=== PATIENT | female | born 1970 | race Caucasian/White ===

== ENCOUNTER 2024-03-19 13:07 | Emergency (ER) | payer MEDICAID, SELFPAY ==
[2024-03-19 13:15] VITALS: BP 131/71; PULSE 112; RESP 22; TEMP 36.7; O2SAT 100
--- NOTE | 2024-03-19 13:17 | XR_ITS ---
Examination: PA chest single view TECHNIQUE: Upright PA chest single view Exam date and time: March 19, 2024 1327 hours INDICATIONS: Difficulty breathing with coughing today. FINDINGS: Moderate hyperexpansion Normal heart size No pneumonia or pulmonary edema Mild accentuation bronchovascular markings IMPRESSION: Moderate hyperexpansion Mild bronchitis pattern
[2024-03-19] MEDS: ALBUTEROL/IPRATROPIUM (Duoneb) RT SOL 3 ML NEBU INH (13:34)
[2024-03-19 13:35] VITALS: PULSE 115; RESP 22; O2SAT 99
[2024-03-19] MEDS: ACETAMINOPHEN w/COD 300-30 TABLET 2 TAB PO (13:39)
[2024-03-19] MEDS: predniSONE 20 MG TABLET 40 MG PO (13:39)
--- NOTE | 2024-03-19 13:45 | EDNOTE_ITS ---
ED SOB =RME/HPI General Chief Complaint: Shortness of Breath/Dyspnea Stated Complaint: PROBLEMS BREATHING W/ COUGH Time Seen by Provider: 03/19/24 13:09 Arrival date/time: 03/19/24 13:07 RME / HPI RME / HPI Narrative: This section includes all my notes and documentations, including HPI, PE, and ED course.? Kenrick Boss MD HPI: 53-year-old female here with about a week history of worsening cough, productive cough, purulent sputum, and dyspnea. No fever. No chest pain. No other complaints. ROS: All negative except as documented in HPI. Physical Exam: General:? Alert and oriented.? Hacking cough noted. Eyes:? Conjunctivae and lids clear.? ENT:? No nasal congestion.??Pharynx normal. TM normal bilaterally. Neck:? Supple.? Heart:? RRR.? Lungs:? No respiratory distress.? Moderately decreased air movement with bilat eral severe rhonchi. Abdomen:? Soft and nontender.?? Legs:? No clubbing, cyanosis, edema.? Skin:? Warm and dry.?? Neuro:? Alert and oriented X 3.?? I reviewed all diagnostic test results. My interpretation of the chest x-ray is increased bronchial markings. COVID/influenza negative. At this point, diagnoses include?bronchitis. Treatment here included?prednisone and DuoNeb and two Tylenol #3. Significant improvement noted. Recommended a trial of outpatient treatment. Based on my best medical judgment, made decision no further evaluation or treatment indicated at this time.? Patient understands and agrees to the discharge instructions customized and printed, see below. Discharge instructions from Dr. Boss: --No physical exertion for 3 days to help rest the lungs. ?-No smoking or exposure to smoking or pets or dust or cold or humidity. --Zithromax to kill the germs causing the bronchitis. --Prednisone to help decrease the swelling in the airways. --Albuterol 2 puffs every 4-6 hours for today and tomorrow to help keep the airways open. Then as needed for cough or shortness of breath. --See a private doctor next week for recheck if not completely better. --Seek immediate medical care with worsening or with any concerns. Kenrick Boss MD Related Data Previous Rx's ?Medication ?Instructions ?Recorded acetaminophen 300 mg-codeine 30 mg 2 tab PO TID PRN pain #20 tabs 03/19/24 tablet albuterol sulfate 90 mcg/actuation 2 inh inhalation QID PRN shortness 03/19/24 aerosol inhaler of breath or wheezing #8.5 grams azithromycin 500 mg tablet 500 mg PO QDAY 3 days #3 tabs 03/19/24 (Zithromax TRI-YVETTE) prednisone 20 mg tablet 40 mg PO DAILY 3 days #6 tabs 03/19/24 Allergies Allergy/AdvReac Type Severity Reaction Status Date / Time morphine Allergy Intermediate ITCHING Verified 03/19/24 13:08 Contrast Media Allergy Intermediate ITCHING Uncoded 03/19/24 13:08 Review of Systems Review of Systems Systems Reviewed: All systems reviewed, normal except as documented Past Medical History Past Medical History CARDIAC: Negative Congestive Heart Failure RESPIRATORY: Negative Chronic Obstructive Pulmonary Disease (COPD) GENITOURINARY: Negative Renal Disease ENDOCRINE: Negative Diabetes Mellitus Type 1 or Diabetes Mellitus Type 2 Social History SMOKING STATUS: Never smoker ED Exam Narrative Physical exam: As noted in HPI Course Course Course Narrative: chest xray ordered to help determine etiology of shortness of breath. Quality Measures none Orders Category Date Time Status Bedside COVID-19 Antigen Test NOW Care 03/19/24 13:17 Completed Bedside Influenza A&B Antigen Test NOW Care 03/19/24 13:17 Completed XR chest 1V portable Stat Exams 03/19/24 13:17 Completed ACETAMINOPHEN w/COD 300-30 [Tylenol w/Cod #3] Med 03/19/24 13:17 Discontinued 2 tab PO X1 ONE Albuterol/Ipratr Rt Kaitlynn [Duoneb Rt Kaitlynn] Med 03/19/24 13:17 Discontinued 3 ml INH X1 ONE Azithromycin Po [Zithromax PO] Med 03/19/24 15:04 Discontinued 500 mg PO X1 ONE predniSONE Med 03/19/24 13:17 Discontinued 40 mg PO X1 ONE Vital Signs Vital signs: Vital Signs Temperature 98.1 F 03/19/24 13:15 Pulse Rate 112 H 03/19/24 13:15 Respiratory Rate 22 H 03/19/24 13:15 Blood Pressure 131/71 H 03/19/24 13:15 Pulse Oximetry (%) 100 03/19/24 13:15 Oxygen Delivery Method Room Air 03/19/24 13:15 Pulse ox is 100% on room air which is adequate. Shortness of Breath / Dyspnea Patient data External records reviewed:: [facility] previous records (I reviewed ED visit on 05/17/2023) Clinical information provided by:: patient Social determinants that could affect healthcare access:: none Patient has the following chronic illnesses:: None How is presenting disease/condition affected by chronic disease/condition?: no chronic disease Evaluation data The following diagnostics were reviewed and interpreted by me:: lab results and radiology exam(s) Lab and/or radiology exams considered but not ordered:: None Interpretation Summary: Bronchitis Medications / Prescriptions Medications or Prescriptions considered but not ordered:: None Medication administrations:: Medication Administration History Discontinued Medications Acetaminophen/Codeine Phosphate (Acetaminophen W/Cod 300-30 Tablet) 2 tab PO X1 ONE Stop: 03/19/24 13:18 Last Admin: 03/19/24 13:39 Dose: 2 tab Documented By: ALEJANDRINA Albuterol/Ipratropium (Albuterol/Ipratropium (Duoneb) Rt Kaitlynn 3 Ml Nebu) 3 ml INH X1 ONE Stop: 03/19/24 13:18 Last Admin: 03/19/24 13:34 Dose: 3 ml Documented By: VIRI Azithromycin (Azithromycin 250 Mg Tablet) 500 mg PO X1 ONE Stop: 03/19/24 15:05 Last Admin: 03/19/24 15:11 Dose: 500 mg Documented By: OA Prednisone (Prednisone 20 Mg Tablet) 40 mg PO X1 ONE Stop: 03/19/24 13:18 Last Admin: 03/19/24 13:39 Dose: 40 mg Documented By: OA Albuterol, prednisone, Tylenol with codeine, Azithromycin Consultations Consultation(s) initiated? (list below): No Diagnosis Shortness of Breath Differential Diagnosis: acute exacerbation of chronic obstructive airways disease, congestive heart failure, community acquired pneumonia and asthma with exacerbation Most likely diagnosis given after review of the tests above:: Bronchitis Admission Indicated Admission indicated?: not indicated Explain why admission is indicated or not indicated:: Does not meet admission criteria Admission Request Was there a request for admission?: No Admission Attestation Admission request attestation: Admission criteria not met Disposition Plan Disposition Plan: Discharge Discharge Attestation Discharge Attestation: The patient and all family members were given an opportunity to ask questions and understood the discharge instructions. Discharge instructions specifically effects, indications for sooner follow up or return to the emergency department, and the expected course of current diagnosis. Patient condition: Stable Discharge Plan Plan Patient Disposition: HOME (Self Care) Prescriptions/Referrals Prescriptions/Med Rec: New prednisone 20 mg tablet 40 mg PO DAILY 3 Days Qty: 6 0RF Taper: Prednisone Taper 20 mg DAILY for 2 Days and 0 Hour 10 mg DAILY for 2 Days and 0 Hour 5 mg DAILY for 7 Days and 0 Hour acetaminophen-codeine 300-30 mg tablet 2 tab PO TID MDD 6 PRN (Reason: pain) Qty: 20 0RF albuterol sulfate 90 mcg/actuation HFA aerosol inhaler 2 inh inhalation QID PRN (Reason: shortness of breath or wheezing) Qty: 8.5 0RF azithromycin [Zithromax TRI-YVETTE] 500 mg tablet 500 mg PO QDAY 3 Days Qty: 3 0RF Referrals: No Primary/Family,Physician [Primary Care Provider] - In 1 week Problem List Clinical Impression: Bronchitis Patient/Caregiver Discharge Instructions Education Materials: ED Bronchitis with Wheezing (Adult) Additional Instructions: Discharge instructions from Dr. Boss: --No physical exertion for 3 days to help rest the lungs. ?-No smoking or exposure to smoking or pets or dust or cold or humidity. --Zithromax to kill the germs causing the bronchitis. --Prednisone to help decrease the swelling in the airways. --Albuterol 2 puffs every 4-6 hours for today and tomorrow to help keep the airways open. Then as needed for cough or shortness of breath. --See a private doctor next week for recheck if not completely better. --Seek immediate medical care with worsening or with any concerns. Print Language: Micronesian Stand Alone Forms: Josefina Award Info., Patient Portal Info Letter
[2024-03-19] MEDS: AZITHROMYCIN 250 MG TABLET 500 MG PO (15:11)
[2024-03-19 16:10] VITALS: BP 124/84; PULSE 78; RESP 16; O2SAT 99
== END 2024-03-19 16:10 | disposition home or self-care (01) ==
PROVIDERS: Emergency Provider Emergency Medicine
DX: J40 Bronchitis, not specified as acute or chronic (principal)
CPT/HCPCS: 71045; 87400; 87811; 94640; 99283; A9270; J7512

== ENCOUNTER 2024-04-25 14:59 | Emergency (ER) | payer MEDICAID, SELFPAY ==
--- NOTE | 2024-04-25 15:02 | EKG_ITS ---
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
--- NOTE | 2024-04-25 15:02 | XR_ITS ---
Examination: AP AP chest single view Technique one AP upright portable chest single view Exam date and time: April 25, 2024 1523 hrs. Indications: Chest pain vomiting today. Findings: Normal heart size Moderate hyperexpansion No pneumonia or pulmonary edema Impression: COPD No pneumonia or pulmonary edema
--- NOTE | 2024-04-25 15:03 | PD.EDADULT ---
ED General RME/HPI General Chief complaint: Chest Pain Stated complaint: CHEST PAIN Time Seen by Provider: 04/25/24 15:02 Arrival date/time: 04/25/24 14:59 RME / HPI RME / HPI narrative: 53-year-old female patient with no significant medical history, came in for evaluation regarding left-sided chest pain. Patient was drinking alcohol when it happened, described as dull ache, severity mild. Patient was also noted to be throwing up and nauseous. Denies any cough denies any fever denies any other complaints no medication was taken prior to arrival. Related Data Previous Rx's ?Medication ?Instructions ?Recorded acetaminophen 300 mg-codeine 30 mg 2 tab PO TID PRN pain #20 tabs 03/19/24 tablet albuterol sulfate 90 mcg/actuation 2 inh inhalation QID PRN shortness 03/19/24 aerosol inhaler of breath or wheezing #8.5 grams Allergies Allergy/AdvReac Type Severity Reaction Status Date / Time morphine Allergy Intermediate ITCHING Verified 04/25/24 15:22 Contrast Media Allergy Intermediate ITCHING Uncoded 04/25/24 15:22 Review of Systems Review of Systems Narrative Review of Systems: Review of system reviewed and within normal limits except mentioned in HPI ED Exam Narrative Physical exam: VITAL SIGNS: Reviewed. GENERAL APPEARANCE: Alert and interactive, follows commands, no acute distress, HEAD AND FACE: Non-traumatic. ENT: PERRL, pink conjunctivitis, eyelid no trauma, Mucous membrane moist. NECK: Supple, nontender, no nuchal rigidity. CHEST: Left-sided chest tenderness, no crepitus, no paradoxical movement, no retractions. LUNGS: Clear, well ventilated, symmetric, no rales, no wheezing, no ronchi, no stridor, good breath sounds bilaterally. HEART: Regular rate, regular rhythm, no murmur, no gallops. ABDOMEN: Soft, positive bowel sounds, nondistended, no guarding, nontender, no rebound, no masses, RECTAL: Deferred. GENITAL: Deferred. NEUROLOGICAL: Gross motor function intact sensory function intact, Appropriate for age. MUSCULOSKELETAL: low back nontender, full range of motion. EXTREMITIES: Nontender, full range of motion. SKIN: Color pink, dry, no rash, no lacerations, no abrasions, no contusions. LYMPHATICS: Deferred. Course Quality Measures none Orders Category Date Time Status EKG (ED ONLY) *Do not use* NOW Care 04/25/24 15:02 Completed EKG (ED Only) Stat Exams 04/25/24 15:02 Draft XR chest 1V Stat Exams 04/25/24 15:02 Completed B-Type Natriuretic Peptide Stat Lab 04/25/24 15:38 Completed CBC Stat Lab 04/25/24 15:38 Completed Comprehensive Metabolic Panel Stat Lab 04/25/24 15:38 Completed Partial Thromboplastin Time Stat Lab 04/25/24 15:38 Completed Prothrombin Time with INR Stat Lab 04/25/24 15:38 Completed Troponin I Stat Lab 04/25/24 15:38 Completed Acetaminophen Tab [Tylenol ES Tab] Med 04/25/24 15:02 Discontinued 1,000 mg PO X1 ONE Ondansetron Odt [Zofran Odt] Med 04/25/24 15:02 Discontinued 4 mg PO X1 ONE mg Hyd/Al Hyd/Shlomo Susp [Maalox Susp] Med 04/25/24 15:02 Discontinued 30 ml PO X1 ONE Vital Signs Vital signs: Vital Signs Temperature 97.5 F 04/25/24 15:05 Pulse Rate 85 04/25/24 15:05 Respiratory Rate 17 04/25/24 15:05 Blood Pressure 144/97 H 04/25/24 15:05 Pulse Oximetry (%) 96 04/25/24 15:05 Oxygen Delivery Method Room Air 04/25/24 15:05 [facility] Patient data External records reviewed:: None Clinical information provided by:: patient Social determinants that could affect healthcare access:: none Patient has the following chronic illnesses:: None How is presenting disease/condition affected by chronic disease/condition?: no chronic disease Evaluation data The following diagnostics were reviewed and interpreted by me:: radiology exam(s) Lab and/or radiology exams considered but not ordered:: None Interpretation Summary: Laboratory couple came back unremarkable troponin is normal. Chest x-ray came back unremarkable. EKG showed normal sinus rhythm, ventricular rate of 89 bpm, no ST segment ovation depression noted. Medications Medications considered but not ordered:: None Medication administrations:: Medication Administration History Discontinued Medications Acetaminophen (Acetaminophen 500 Mg Tablet) 1,000 mg PO X1 ONE Stop: 04/25/24 15:03 Last Admin: 04/25/24 15:33 Dose: 1,000 mg Documented By: KF Al Hydrox/Mg Hydrox/Simethicone (Mg Hyd/Al Hyd/Shlomo (Maalox Reg) Susp 30 Ml Udc) 30 ml PO X1 ONE Stop: 04/25/24 15:03 Last Admin: 04/25/24 15:33 Dose: 30 ml Documented By: KAREN Ondansetron HCl (Ondansetron Odt 4 Mg Tabrap) 4 mg PO X1 ONE; Protocol Stop: 04/25/24 15:03 Last Admin: 04/25/24 15:33 Dose: 4 mg Documented By: KAREN Tylenol Maalox and Zofran Consultations Consultation(s) initiated? (list below): No Diagnosis Differential Diagnosis ED Complaint MDM: Chest pain, alcohol intoxication, vomiting Most likely diagnosis given after review of the tests above:: Chest pain, alcohol intoxication Admission Indicated Admission indicated?: not indicated Explain why admission is indicated or not indicated:: stable Admission Request Was there a request for admission?: No Disposition Plan Disposition Plan: Discharge Discharge Attestation Discharge Attestation: The patient and all family members were given an opportunity to ask questions and understood the discharge instructions. Discharge instructions specifically effects, indications for sooner follow up or return to the emergency department, and the expected course of current diagnosis. Patient condition: Stable Medical Decision Making MDM Narrative MDM Narrative: 53-year-old female patient with no significant medical history, came in for evaluation regarding left-sided chest pain. Patient was drinking alcohol when it happened, described as dull ache, severity mild. Patient was also noted to be throwing up and nauseous. Denies any cough denies any fever denies any other complaints no medication was taken prior to arrival. Patient's workup today all came back normal. Including normal EKG normal chest x-ray troponin also is normal. Results discussed with the patient. Patient appears nontoxic and hemodynamically stable. Patient discharged home and instructed to follow-up with primary care provider in 24 to 48 hours. Instructed to return to the emergency department immediately if worsening of symptoms Differential Diagnosis Differential Diagnosis: Chest pain, alcohol intoxication, vomiting Lab Data 04/25/24 15:38 04/25/24 15:38 Labs: Lab Results 04/25/24 Range/Units 15:38 WBC 7.0 (3.6-11.0) Thou/mm3 RBC 3.93 L (4.00-5.20) Miln/mm3 Hgb 13.5 (12.0-16.0) g/dL Hct 39.2 (36.0-46.0) % MCV 100 (80-100) fL MCH 34.4 (25.0-35.0) pg MCHC 34.4 (31.0-37.0) g/dl RDW Std Deviation 47.9 H (36.4-46.3) fL Plt Count 237 (140-440) Thou/mm3 Neut % (Auto) 61 (37-80) % Lymph % (Auto) 28 (10-50) % [place] % (Auto) 7 (0-12) % Eos % (Auto) 3 (0-10) % Baso % (Auto) 1 (0-2.5) % Neut # (Auto) 4.3 (1.8-7.7) Thou/mm3 Lymph # (Auto) 1.9 (1.0-4.8) Thou/mm3 [place] # (Auto) 0.5 (0.0-0.8) Thou/mm3 Eos # (Auto) 0.2 (0.0-0.5) Thou/mm3 Baso # (Auto) 0.1 (0.0-0.2) Thou/mm3 Immature Gran # (Auto) 0.02 H (0.00-0.00) Thou/mm3 Absolute Nucleated RBC 0.00 (0.00-0.00) Thou/mm3 Immature Gran % 0 (0-0) % Nucleated RBC % 0 (0) /100 WBC PT 10.3 (9.0-12.2) Seconds INR 0.9 (0.9-1.3) APTT 23.4 (22.0-36.0) Seconds Sodium 147 H (136-145) mMol/L Potassium 4.0 (3.4-5.1) mMol/L Chloride 112 H (98-107) mMol/L Carbon Dioxide 28.3 (20.0-31.0) mMol/L Anion Gap 7 (7-16) BUN 11 (9-23) mg/dL Creatinine 0.7 (0.6-1.3) mg/dL Estim Creat Clear Calc 79.0 (>60) mL/min eGFR > 60 (60 - ) See Note BUN/Creatinine Ratio 16 (12-20) Ratio Glucose 83 (74-106) mg/dL Calculated Osmolality 290 (275-295) Calcium 9.2 (8.3-10.6) mg/dL Corrected Calcium 9.2 (8.5-10.1) mg/dL Total Bilirubin 0.3 (0.3-1.2) mg/dL AST 29 (0-34) U/L ALT 15 (10-49) U/L Alkaline Phosphatase 100 (46-116) U/L Troponin I < 0.002 (0.0-0.045) ng/mL B-Natriuretic Peptide < 20 (0-100) pg/mL Total Protein 7.1 (5.7-8.2) gm/dL Albumin 4.6 (3.5-5.0) gm/dL Globulin 2.5 (2.3-3.5) gm/dL Albumin/Globulin Ratio 1.8 (1.2-2.2) Discharge Plan Plan Patient Disposition: HOME (Self Care) Disposition Comment: stable Prescriptions/Referrals Prescriptions/Med Rec: No Action acetaminophen-codeine 300-30 mg tablet 2 tab PO TID MDD 6 PRN (Reason: pain) Qty: 20 0RF albuterol sulfate 90 mcg/actuation HFA aerosol inhaler 2 inh inhalation QID PRN (Reason: shortness of breath or wheezing) Qty: 8.5 0RF Referrals: Edy Dickey MD [Primary Care Provider] - In 1 week Problem List Clinical Impression: Chest pain Patient/Caregiver Discharge Instructions Discharge Activity: activity as tolerated Education Materials: ED Chest Pain, Uncertain Cause Additional Instructions: Thank you for the opportunity for serving you today. You are stable for discharged . You are advised to: Follow-up with your PCP in 1 to 2 days Return to ED for worsening of symptoms Increase oral fluids Take [id number] Tylenol Motrin as needed for pain Print Language: American Stand Alone Forms: Josefina Award Info., Patient Portal Info Letter JEANNA/VIJI Supervising Physician JEANNA/VIJI Supervising Physician: MD Deanna
[2024-04-25 15:05] VITALS: BP 144/97; PULSE 85; RESP 17; TEMP 36.4; O2SAT 96; BMI 19.3
[2024-04-25 15:18] VITALS: PULSE 97; RESP 20; O2SAT 94
[2024-04-25] MEDS: ONDANSETRON ODT 4 MG TABRAP PO (15:33)
[2024-04-25] MEDS: ACETAMINOPHEN 500 MG TABLET 1000 MG PO (15:33)
[2024-04-25] MEDS: MG HYD/AL HYD/SIME (Maalox Reg) SUSP 30 ML UDC PO (15:33)
[2024-04-25 16:01] LABS: Basophils # (Auto) 0.1 Thou/mm3 (0.0-0.2); Basophils % (Auto) 1 % (0-2.5); Eosinophils # (Auto) 0.2 Thou/mm3 (0.0-0.5); Eosinophils % (Auto) 3 % (0-10); Hematocrit 39.2 % (36.0-46.0); Hemoglobin 13.5 g/dL (12.0-16.0); Immature Granulocytes % (Auto) 0 % (0-0); Immature Granulocytes Auto 0.02 Thou/mm3 (0.00-0.00); Lymphocytes # (Auto) 1.9 Thou/mm3 (1.0-4.8); Lymphocytes % (Auto) 28 % (10-50); Mean Corpuscular HGB Conc 34.4 g/dl (31.0-37.0); Mean Corpuscular Hemoglobin 34.4 pg (25.0-35.0); Mean Corpuscular Volume 100 fL (80-100); Monocytes # (Auto) 0.5 Thou/mm3 (0.0-0.8); Monocytes % (Auto) 7 % (0-12); Neutrophils # (Auto) 4.3 Thou/mm3 (1.8-7.7); Neutrophils % (Auto) 61 % (37-80); Nucleated Red Blood Cell % 0 /100 WBC (0); Platelet Count 237 Thou/mm3 (140-440); RDW Standard Deviation 47.9 fL (36.4-46.3); Red Blood Count 3.93 Miln/mm3 (4.00-5.20)
[2024-04-25 16:12] LABS: INR 0.9 (0.9-1.3); Partial Thromboplastin Time 23.4 Seconds (22.0-36.0); Prothrombin Time 10.3 Seconds (9.0-12.2)
[2024-04-25 16:14] LABS: B-Type Natriuretic Peptide < 20 pg/mL (0-100)
[2024-04-25 16:16] LABS: Alanine Aminotransferase 15 U/L (10-49); Albumin, Serum 4.6 gm/dL (3.5-5.0); Albumin/Globulin Ratio 1.8 (1.2-2.2); Alkaline Phosphatase 100 U/L (46-116); Anion Gap 7 (7-16); Aspartate Amino Transferase 29 U/L (0-34); BUN/Creatinine Ratio 16 Ratio (12-20); Bilirubin,Total 0.3 mg/dL (0.3-1.2); Blood Urea Nitrogen 11 mg/dL (9-23); Calcium 9.2 mg/dL (8.3-10.6); Calcium (Corrected) 9.2 mg/dL (8.5-10.1); Carbon Dioxide 28.3 mMol/L (20.0-31.0); Chloride 112 mMol/L (98-107); Creatinine (Component) 0.7 mg/dL (0.6-1.3); Globulin 2.5 gm/dL (2.3-3.5); Glucose 83 mg/dL (74-106); Osmolality,Calculated 290 (275-295); Sodium 147 mMol/L (136-145); Total Protein 7.1 gm/dL (5.7-8.2); Troponin I < 0.002 ng/mL (0.0-0.045); eGFR > 60 See Note
== END 2024-04-25 19:35 | disposition home or self-care (01) ==
PROVIDERS: Nurse Practitioner Family; Emergency Provider Emergency Medicine; PCP Family Medicine
DX: R07.89 Other chest pain (principal); Z91.041 Radiographic dye allergy status; Z88.5 Allergy status to narcotic agent
CPT/HCPCS: 36415; 71045; 80053; 83880; 84484; 85025; 85610; 85730; 93005; 99283; Q0162; A9270

== ENCOUNTER 2025-03-05 08:34 | Inpatient (IN) | payer MEDICAID, SELFPAY ==
--- NOTE | 2025-03-05 08:41 | EKG_ITS ---
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
--- NOTE | 2025-03-05 08:43 | PC.NURSE ---
PER DR. PATEL, NO STROKE ALERT AT THIS TIME.
[2025-03-05 08:49] VITALS: BP 114/69; PULSE 123; RESP 23; TEMP 36.4; O2SAT 100
--- NOTE | 2025-03-05 08:50 | EDRME_ITS ---
Rapid Medical Screening Exam [facility] Arrival date/time: 03/05/25 08:34 54-year-old female with no known medical history presents to the emergency room with a chief complaint of palpitations, bilateral hand cramping, nausea, vomiting and dizziness x 2 days I have greeted and performed a focused initial assessment of this patient. A comprehensive ED assessment and evaluation of the patient, analysis of all test results, and completion of the medical decision making process will be conducted by additional ED providers. Chief Complaint: Neuro Symptoms/Deficit Time Seen by Provider: 03/05/25 08:46 Vital signs: Vital Signs Temperature 97.6 F 03/05/25 08:49 Pulse Rate 123 H 03/05/25 08:49 Respiratory Rate 23 H 03/05/25 08:49 Blood Pressure 114/69 03/05/25 08:49 Pulse Oximetry (%) 100 03/05/25 08:49 Oxygen Delivery Method Room Air 03/05/25 08:49 Vital signs reviewed by provider: Yes Exam: Patient is a GCS of 15 she is alert and oriented x 3 Patient is very fidgety, shaking, The patient has clear bilateral lung sounds. The patient has a strong and regular rhythm S1 and S2 noted Clinical Impression: Electrolyte imbalance/vomiting/dizziness
--- NOTE | 2025-03-05 09:00 | PC.NURSE ---
PT WAS IN WHEELCHAIR IN LAB ROOM WAITING TO HAVE BLOOD DRAWN WHEN REAL ESTATE DEVELOPMENT MANAGER STATED SHE HEARD LOUD NOISE. WHEN REAL ESTATE DEVELOPMENT MANAGER WENT TO CHECK ON PT PT WAS NOTED TO BE ON THE GROUND HAVING SEIZURE. ON MY ARRIVAL PT HAD ALREADY BEEN ASSISTED BACK TO WHEELCHAIR BUT WAS STILL ACTIVELY SEIZING SO PT WAS TAKEN TO ROOM 3. HEMATOMA NOTED TO PT'S FOREHEAD AND BLOOD NOTED TO FACE. DR PATEL AT BEDSIDE TO SEE PT
--- NOTE | 2025-03-05 09:06 | XR_ITS ---
Examination: CT cervical spine without contrast 2-D sagittal reconstructions 2-D coronal reconstructions 3-D reconstructions. Exam date and time: 03/05/2025 at 9:41 a.m. CTDI:vol (mGy) 13 point DLP: (mGycm) 270 INDICATION: Syncope with traumatic fall and trauma with neck pain Technique: Multiple 2 mm axial sections of the cervical spine have been obtained. The coronal and sagittal reconstructions have been obtained. 3-D reconstructions have been obtained. Low dose protocols were performed. One or more of the following dose reduction techniques were used; automated exposure control, adjustment of the mA and/or KV according to patient size, use of iterative reconstruction technique. Findings: Impression: No acute cervical fracture. There is major multilevel degenerative disc disease at all levels from see for down to C7. At C4-5 on the patient's left side there is a large osteophyte in the joint of Luschka creating very significant encroachment on the left neural foramen. At C5-6 there is also a very prominent degenerative osteophyte in the joint of Luschka encroaching on the left neuroforamen. Similar findings are seen involving and narrowing the right neural foramen. No foraminal narrowing is seen at C6-C7. There is no evidence of any narrowing of the spinal canal at any level IMPRESSION: 1. Studies entirely negative for trauma Tube there is prominent degenerative disc disease at all levels from C4 down to C7 see above regarding some locations of prominent degenerative neural foraminal encroachment
--- NOTE | 2025-03-05 09:06 | EKG_ITS ---
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
--- NOTE | 2025-03-05 09:06 | XR_ITS ---
Examination: CT maxillofacial, without intravenous contrast. 2-D sagittal reconstructions. 3-D reconstructions. Date and time of exam: 03/05/2025 at 9:41 a.m. CTDI: vol (mGy): 21 point DLP: (mGycm): 432 INDICATIONS: Syncope with traumatic fall now pain in the facial bones radiating to the back of her neck Technique: Multiple axial images of maxillofacial region, 3.0 mm slice thickness. 2-D sagittal and coronal reconstructions. 3-D reconstructions. Low dose protocols were performed. One or more of the following dose reduction techniques were used; automated exposure control, adjustment of the mA and/or KV according to patient size, use of iterative reconstruction technique. Findings: There are fractures involving the nasal bone on both right and left sides, there is slight buckling of the fracture in the right nasal bone, there is no major displacement of the fractured nasal bone on the left side. There does appear to be an exceedingly minimal fracture involving the midportion of the left zygomatic arch which is very minimally displaced inwards. No other fractures are seen. There is a hematoma noted over the right frontal bone measuring 7 mm in thickness and there is the tiniest dependent fluid collection posteriorly in the right frontal sinus. All of the paranasal sinuses are clear. No other fractures are seen. 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 There is a soft tissue hematoma overlying the right frontal bone, there is an exceedingly tiny dependent fluid collection in the right frontal sinus, fractures of the nasal bones are present bilaterally, and there is a probable but not definite, tiny fracture with minimal internal angulation of the midportion of the zygomatic arch on the left. 2. Prominent DJD in the left TMJ
--- NOTE | 2025-03-05 09:06 | XR_ITS ---
Examination: CT brain head without contrast. 2-D sagittal coronal reconstructions Date and time of exam: 03/05/2025 at 9:41 a.m. CTDI: vol (mGy): 45 point DLP: (mGycm): 868 CLINICAL HISTORY: Head pain facial pain radiating to the back of her neck after trauma Technique: Multiple CT axial sections of the brain have been obtained, 5 mm slice thickness. Contrast has not been administered. 2-D sagittal, coronal reconstructions have been obtained Low dose protocols were performed. One or more of the following dose reduction techniques were used; automated exposure control, adjustment of the mA and/or KV according to patient size, use of iterative reconstruction technique. Findings: Impression: Negative for acute hemorrhage, mass effect or midline shift. Given the patient's age of 54 years, I believe that there is slightly abnormal dilatation of the extra-axial space overlying the cerebral cortex in the region of the frontal parietal lobes. There also appears to be very minimal possible early atrophic change in the anterior temporal lobes. However the sylvian cisterns and ventricular system are perfectly normal in size and appearance. No abnormalities are seen in the spaulding or white matter of the cerebrum. Extra-axial space likewise appears normal. All paranasal sinuses and mastoids are clear normal IMPRESSION: 1. This study is entirely negative for intracerebral trauma. No abnormalities are seen involving the cerebrum or cerebellum or brainstem 2 see above comments regarding possible very minor dilatation of the extra-axial space over the frontal and parietal lobes, and at the anterior tip of the temporal lobes.
[2025-03-05] MEDS: SODIUM CHLORIDE 0.9% 1000 ML 1,000 ML 999 ML IV (09:24)
[2025-03-05 09:54] VITALS: PULSE 115; PULSE 116; RESP 19; RESP 99
[2025-03-05 10:13] LABS: Basophils # (Auto) 0.0 Thou/mm3 (0.0-0.2); Basophils % (Auto) 0 % (0-2.5); Eosinophils # (Auto) 0.0 Thou/mm3 (0.0-0.5); Eosinophils % (Auto) 0 % (0-10); Hematocrit 38.1 % (36.0-46.0); Hemoglobin 13.3 g/dL (12.0-16.0); Immature Granulocytes Auto 0.05 Thou/mm3 (0.00-0.00); Lymphocytes # (Auto) 1.0 Thou/mm3 (1.0-4.8); Lymphocytes % (Auto) 9 % (10-50); Mean Corpuscular HGB Conc 34.9 g/dl (31.0-37.0); Mean Corpuscular Hemoglobin 34.2 pg (25.0-35.0); Mean Corpuscular Volume 98 fL (80-100); Monocytes # (Auto) 0.3 Thou/mm3 (0.0-0.8); Monocytes % (Auto) 3 % (0-12); Neutrophils # (Auto) 8.7 Thou/mm3 (1.8-7.7); Neutrophils % (Auto) 86 % (37-80); Nucleated Red Blood Cell # 0.00 Thou/mm3 (0.00-0.00); Nucleated Red Blood Cell % 0 /100 WBC (0); Platelet Count 214 Thou/mm3 (140-440); RDW Standard Deviation 47.1 fL (36.4-46.3); Red Blood Count 3.89 Miln/mm3 (4.00-5.20); White Blood Count 10.1 Thou/mm3 (3.6-11.0)
--- NOTE | 2025-03-05 10:15 | XR_ITS ---
AP upright portable chest film 03/05/2025 at 10:37 a.m. CLINICAL HISTORY: Patient has a huge soft tissue bump on the forehead and dried blood outside of their mouth, now with chest pain for 2 days Comparison study 04/25/2024 FINDINGS: Heart mediastinum are normal both lungs and pleural space are clear normal. No significant bony abnormalities are seen. IMPRESSION: 1. Normal chest for
[2025-03-05 10:20] LABS: Lactate (Lactic Acid) 5.6 mMol/L (0.4-2.0)
[2025-03-05 10:37] LABS: INR 1.0 (0.9-1.3); Partial Thromboplastin Time 20.5 Seconds (22.0-36.0); Prothrombin Time 10.6 Seconds (9.0-12.2)
[2025-03-05 10:40] LABS: B-Type Natriuretic Peptide 50 pg/mL (0-100)
[2025-03-05 10:49] LABS: Alanine Aminotransferase 12 U/L (10-49); Albumin, Serum 4.6 gm/dL (3.5-5.0); Albumin/Globulin Ratio 1.8 (1.2-2.2); Alcohol, Blood Medical < 3.0 mg/dL (0-10.0); Alkaline Phosphatase 88 U/L (46-116); Anion Gap 20 (7-16); Aspartate Amino Transferase 32 U/L (0-34); BUN/Creatinine Ratio 11 Ratio (12-20); Bilirubin,Total 1.4 mg/dL (0.3-1.2); Blood Urea Nitrogen 9 mg/dL (9-23); Calcium 9.0 mg/dL (8.3-10.6); Calcium (Corrected) 9.0 mg/dL (8.5-10.1); Carbon Dioxide 19.9 mMol/L (20.0-31.0); Chloride 102 mMol/L (98-107); Creatinine (Component) 0.8 mg/dL (0.6-1.3); Estimated Creatinine Clearance 70.7 mL/min (>60); Free T4 (Free Thyroxine) 1.65 ng/dL (0.89-1.76); Globulin 2.5 gm/dL (2.3-3.5); Glucose 157 mg/dL (74-106); Lipase 39 U/L (12-53); Magnesium 1.7 mg/dL (1.6-2.6); Osmolality,Calculated 284 (275-295); Potassium 3.0 mMol/L (3.4-5.1); Sodium 142 mMol/L (136-145); Thyroid Stimulating Hormone 3.32 uIU/mL (0.55-4.78); Total Protein 7.1 gm/dL (5.7-8.2); Troponin I < 0.002 ng/mL (0.0-0.045); eGFR > 60 See Note
[2025-03-05] MEDS: LORazepam 2 MG/ML VIAL 1 MG IVP (10:50)
[2025-03-05] MEDS: levETIRAcetam INJ 100 MG/ML VIAL 5ML 1500 MG IVP (10:50)
[2025-03-05 10:59] LABS: Base Excess -1 (-3-3); HCO3 20 mEq/L (20-26); O2 Saturation 99 % (91-98); PCO2 23 mmHg (32.0-48.0); PO2 103 mmHg (83-108); pH, Arterial 7.54 (7.35-7.45)
[2025-03-05 11:01] LABS: Allen Test Performed/OK; Inspired O2, VO2 Liters 2 L/min; Puncture Site Right Radial
[2025-03-05] MEDS: ONDANSETRON INJ 2 MG/ML INJ 2 ML 4 MG IVP ×2 (11:26→16:29)
--- NOTE | 2025-03-05 12:04 | EDNOTE_ITS ---
ED SOB =RME/HPI General Chief Complaint: Neuro Symptoms/Deficit Stated Complaint: L FACE NUMB & BILAT. HAND NUMBNESS; LKN@0500 Time Seen by Provider: 03/05/25 08:46 Arrival date/time: 03/05/25 08:34 RME / HPI RME / HPI Narrative: 03/05/25 08:34 54-year-old female with no known medical history presents to the emergency room with a chief complaint of palpitations, bilateral hand cramping, nausea, vomiting and dizziness x 2 days I have greeted and performed a focused initial assessment of this patient. A comprehensive ED assessment and evaluation of the patient, analysis of all test results, and completion of the medical decision making process will be conducted by additional ED providers. DR. AMANDA ELDRIDGE ED EVALUATION, please see MDM. Exam: Patient is a GCS of 15 she is alert and oriented x 3 Patient is very fidgety, shaking, The patient has clear bilateral lung sounds. The patient has a strong and regular rhythm S1 and S2 noted Impression: Electrolyte imbalance/vomiting/dizziness Related Data Allergies Allergy/AdvReac Type Severity Reaction Status Date / Time morphine Allergy Intermediate ITCHING Verified 03/05/25 08:37 Contrast Media Allergy Intermediate ITCHING Uncoded 03/05/25 08:37 Review of Systems Review of Systems Systems Reviewed: All systems reviewed, normal except as documented Past Medical History Past Medical History CARDIAC: Negative Congestive Heart Failure RESPIRATORY: Negative Chronic Obstructive Pulmonary Disease (COPD) GENITOURINARY: Negative Renal Disease ENDOCRINE: Negative Diabetes Mellitus Type 1 or Diabetes Mellitus Type 2 Social History SMOKING STATUS: Never smoker ED Exam Narrative Physical exam: See [facility] Course Quality Measures none Orders Category Date Time Status Bedside Blood Glucose NOW Care 03/05/25 09:06 Active COVID-19 Screening Questionnaire NOW Care 03/05/25 11:58 Active COVID-19 Screening Questionnaire NOW Care 03/05/25 13:08 Completed Long Chain Beamer NOW Care 03/05/25 09:07 Active Continuous Pulse Oximetry NOW Care 03/05/25 09:06 Completed Decision to Admit X1 Care 03/05/25 11:58 Completed Decision to Admit X1 Care 03/05/25 13:08 Completed EKG (ED ONLY) *Do not use* NOW Care 03/05/25 08:41 Completed EKG (ED ONLY) *Do not use* NOW Care 03/05/25 09:07 Completed EKG (ED ONLY) *Do not use* NOW Care 03/05/25 13:36 Completed Insert IV NOW Care 03/05/25 09:07 Active Miscellaneous Nursing Order NOW Care 03/05/25 11:29 Active Seizure precautions NOW Care 03/05/25 11:[address] cervical spine wo con Stat Exams 03/05/25 09:[address] facial bones wo con Stat Exams 03/05/25 09:[address] head/brain wo con Stat Exams 03/05/25 09:06 Completed EKG (ED Only) Stat Exams 03/05/25 08:41 Draft EKG (ED Only) Stat Exams 03/05/25 09:06 Draft EKG (ED Only) Stat Exams 03/05/25 13:36 Ordered XR chest 1V portable Stat Exams 03/05/25 10:15 Completed Alcohol, Blood Medical Stat Lab 03/05/25 10:02 Completed Arterial Blood Gas Stat Lab 03/05/25 10:50 Completed B-Type Natriuretic Peptide Stat Lab 03/05/25 10:02 Completed CBC Stat Lab 03/05/25 10:02 Completed Comprehensive Metabolic Panel Stat Lab 03/05/25 10:02 Completed Drug Screen,Urine Stat Lab 03/05/25 12:37 Completed Free T4 (Free Thyroxine) Stat Lab 03/05/25 10:02 Completed Lactate (Lactic Acid) Stat Lab 03/05/25 10:02 Completed Lactic Acid, 3 HR Stat Lab 03/05/25 13:34 Completed Lipase Stat Lab 03/05/25 10:02 Completed Magnesium Stat Lab 03/05/25 10:02 Completed Partial Thromboplastin Time Stat Lab 03/05/25 10:02 Completed Prothrombin Time with INR Stat Lab 03/05/25 10:02 Completed TSH [Thyroid Stimulating Hormone] Stat Lab 03/05/25 10:02 Completed Troponin I Stat Lab 03/05/25 10:02 Completed Urinalysis, C/S if Indicated Stat Lab 03/05/25 12:03 Completed LORazepam [Ativan Inj] Med 03/05/25 10:16 Discontinued 1 mg IVP X1 ONE Ondansetron Inj [Zofran Inj] Med 03/05/25 11:15 Discontinued 4 mg IVP X1 ONE PHENobarbital Inj Med 03/05/25 11:45 Discontinued 130 mg IVP X1 ONE PHENobarbital Inj 130 mg Med 03/05/25 11:30 Discontinued Sodium Chloride 0.9% Flush [NS Flush] 12 ml IVP X1 Potassium Chloride [K-Dur] Med 03/05/25 11:23 Discontinued 40 meq PO X1 ONE Sodium Chloride 0.9% 1000 ml [Ns] 1,000 ml Med 03/05/25 09:06 Discontinued IV 999 mls/hr levETIRAcetam INJ [Keppra Inj] Med 03/05/25 10:16 Discontinued 1,500 mg IVP X1 ONE Oxygen Delivery NOW RT 03/05/25 09:06 Active Vital Signs Vital signs: Vital Signs Temperature 97.6 F 03/05/25 08:49 Pulse Rate 123 H 03/05/25 08:49 Respiratory Rate 23 H 03/05/25 08:49 Blood Pressure 114/69 03/05/25 08:49 Pulse Oximetry (%) 100 03/05/25 08:49 Oxygen Delivery Method Room Air 03/05/25 08:49 Pulse ox is 100% on room air which is adequate. Shortness of Breath / Dyspnea MDM Narrative MDM Narrative:: This section includes all my notes and documentations, including HPI, PE, and ED course. Reagan Bryant MD ? HPI: 54 year old female presents to the ED for evaluation of shortness of breath today. When the patient initially presents to the ED she was hyperventilating and labs were ordered. The patient reports respiratory problems beginning this morning. Described feeling she is not getting enough air causing her to hyperventilate, with no known modifying factors. Also reports feeling very nauseated. No other associated symptoms reported. The patient does admit to drinking alcohol not daily and amount of alcohol she consumes varies day by day . Patient reports some days she drinks heavily and others she hardly drinks. Last drank alcohol 1 day ago. Patient states I have been shaky my whole life though is worse when she doesn't drink. Denies any history of seizures. ? ROS: All negative except as documented in HPI. ? PE: I initially greeted the patient when she first arrived and during that time the patient was hyperventilating with a respiratory rate in the 50s. Also noted to have carpal spasm in hands. Work-up was ordered and I encouraged her to control her breathing. At 8:58 AM, I was notified by nursing staff the patient had a tonic-clonic sei zure while in the lab room waiting to have her labs drawn. + Facial injury. CT scan of head, face, and cervical spine ordered. Reexamination as documented below GENERAL APPEARANCE:? alert and oriented x 4, well-developed, well-nourished, tremulous, diaphoretic, clammy skin VITALS: All vitals were reviewed and the pulse ox is 98% on room air, which is normal according to my interpretation. HEENT: Normocephalic, hematoma to mid forehead with overlying abrasion, no tenderness or ecchymosis over the zygomatic bones bilaterally; pupils equal, round, reactive to light; EOMI; mucous membranes pink, moist; oropharynx clear NECK: Supple LUNGS: CTABL; no wheezes, no rales, no rhonchi HEART: Tachycardic, regular rhythm; normal S1, S2; no murmurs ABDOMEN: non distended; normal BS;? soft, no tenderness, no guarding, no rebound; no masses, no organomegaly, no hernia?? EXTREMITIES:? atraumatic; no edema NEUROLOGIC: awake; alert and oriented x4; cranial nerves II-XII grossly intact; generalized tremulousness PSYCHIATRIC:? appropriate mood and affect SKIN: warm, clammy skin, diaphoretic, normal color; no rashes I reviewed all diagnostic test results: My interpretation of the chest x-ray is nml diaphragmatic edge, sharp costophreic angles, nml cardiac silhouette, no infiltrates. My review of the Head CT report is: Negative for intracerebral trauma. My review of the Face CT report is: Soft tissue hematoma overlying the right frontal bone with bilateral small nasal bone fractures. My review of the Cervical spine CT report is: No acute cervical fracture. My interpretation of EKG @ 08:47 AM, Sinus tachycardia, rate 129, there is so much artifact there is no way to interpret. My interpretation of EKG #2 14:43, Sinus tachycardia, rate 110, normal axis, no ectopy, Q-waves in V1 through V3, QT 347, QTc 470. Blood tests and urine test: CBC with no acute findings ABG pH 7.54, pCO2 23. (Hyperventilating) Potassium is 3.0, lactic acid is 5.6 Urine alcohol level is < 3.0 ? At this point, diagnoses include: Alcohol withdrawal Alcohol withdrawal seizure Hypokalemia Hyperventilation Treatment here included: IV fluids Keppra Ativan Zofran Potassium Phenobarbital Based on my best medical judgment, I made the decision to admit for further work-up. 1303: I spoke with hospitalist team C for admission. Discussed patients PMHx, HPI, ED course, exam findings, labs, and radiology results. The hospitalist agree to accept the patient for admission. 1434: Received a call from the hospitalist team. They are requesting we consult with ENT for CT findings of there is a probable but not definite, tiny fracture with minimal internal angulation of the midportion of the zygomatic arch on the left. On examination patient has no contusion, ecchymosis, abrasion, tenderness or any other signs of trauma over the zygomatic bones bilaterally and hospitalist team made aware of that. 1510: Hospitalist team accept the patient for admission. Patient data External records reviewed:: [facility] previous records Clinical information provided by:: patient Social determinants that could affect healthcare access:: alcohol use Patient has the following chronic illnesses:: none reported How is presenting disease/condition affected by chronic disease/condition?: no chronic disease Evaluation data The following diagnostics were reviewed and interpreted by me:: lab results, radiology exam(s) and EKG tracing(s) Lab and/or radiology exams considered but not ordered:: None Interpretation Summary: See above Medications / Prescriptions Medications or Prescriptions considered but not ordered:: None Medication administrations:: Medication Administration History Acetaminophen (Acetaminophen 325 Mg Tablet) 650 mg PO Q6H PRN PRN Reason: Fever >101.5 or pain 1-3 Stop: 04/04/25 15:45 Chlordiazepoxide HCl (Chlordiazepoxide Hcl 25 Mg Capsule) 25 mg PO Q8HR [facility] Stop: 03/07/25 16:29 Last Admin: 03/05/25 17:01 Dose: 25 mg Documented By: VG Chlordiazepoxide HCl (Chlordiazepoxide Hcl 25 Mg Capsule) 25 mg PO BID [facility] Stop: 03/10/25 20:59 Diazepam (Diazepam Inj 5 Mg/Ml Vial 2 Ml) 5 mg IVP Q2HR PRN PRN Reason: CIWA SCORE 19-22 Stop: 03/10/25 16:07 Diazepam (Diazepam Inj 5 Mg/Ml Vial 2 Ml) 2.5 mg IVP Q2HR PRN PRN Reason: CIWA SCORE 8-13 Stop: 03/10/25 16:07 Folic Acid (Folic Acid 1 Mg Tablet) 1 mg PO QDAY [facility] Stop: 04/04/25 16:44 Last Admin: 03/05/25 17:01 Dose: 1 mg Documented By: KAVON Heparin Sodium (Porcine) (Heparin Sod Inj 5000 Unit/Ml Vial) 5,000 unit SC Q12HR [facility] Stop: 03/19/25 20:59 Lorazepam (Lorazepam 0.5 Mg Tablet) 0.5 mg PO Q4HR PRN PRN Reason: CIWA Score 2-6 Stop: 03/10/25 16:07 Lorazepam (Lorazepam 0.5 Mg Tablet) 1 mg PO Q4HR PRN PRN Reason: CIWA SCORE 7-11 Stop: 03/10/25 16:07 Last Admin: 03/05/25 16:28 Dose: 1 mg Documented By: KAVON Lorazepam (Lorazepam 2 Mg/Ml Vial) 2 mg IVP Q10MIN PRN PRN Reason: breakthrough seizures Stop: 03/05/25 18:10 Ondansetron HCl (Ondansetron Inj 2 Mg/Ml Inj 2 Ml) 4 mg IVP Q6H PRN; Protocol PRN Reason: NAUSEA OR VOMITING Stop: 04/04/25 15:45 Last Admin: 03/05/25 16:29 Dose: 4 mg Documented By: KAVON Thiamine HCl (Thiamine 100 Mg Tablet) 100 mg PO QDAY [facility] Stop: 04/04/25 16:44 Last Admin: 03/05/25 17:00 Dose: 100 mg Documented By: KAVON Discontinued Medications Phenobarbital Sodium 130 mg/ (Sodium Chloride 12 ml) 0 mg IVP X1 ONE Stop: 03/05/25 11:31 Last Admin: 03/05/25 11:41 Dose: Not Given Documented By: VG Non-Admin Reason: Discontinued Diazepam (Diazepam Inj 5 Mg/Ml Vial 2 Ml) 5 mg IVP X1 PRN PRN Reason: Breakthrough Agitation Diazepam (Diazepam Inj 5 Mg/Ml Vial 2 Ml) 2.5 mg IVP Q2HR PRN PRN Reason: CIWA SCORE 15-18 Stop: 03/10/25 16:07 Sodium Chloride (Ns) 1,000 mls @ 999 mls/hr IV .Q1H1M ONE Stop: 03/05/25 10:06 Last Infusion: 03/05/25 11:40 Dose: Infused Documented By: Admin: 03/05/25 09:24 Dose: 999 mls/hr Documented By: VG Levetiracetam (Levetiracetam Inj 100 Mg/Ml Vial 5ml) 1,500 mg IVP X1 ONE Stop: 03/05/25 10:17 Last Admin: 03/05/25 10:50 Dose: 1,500 mg Documented By: VG Lorazepam (Lorazepam 2 Mg/Ml Vial) 1 mg IVP X1 ONE Stop: 03/05/25 10:17 Last Admin: 03/05/25 10:50 Dose: 1 mg Documented By: VG Lorazepam (Lorazepam 0.5 Mg Tablet) 2 mg PO Q4HR PRN PRN Reason: CIWA SCORE 12-15 Stop: 03/10/25 16:07 Ondansetron HCl (Ondansetron Inj 2 Mg/Ml Inj 2 Ml) 4 mg IVP X1 ONE; Protocol Stop: 03/05/25 11:16 Last Admin: 03/05/25 11:26 Dose: 4 mg Documented By: VG Phenobarbital Sodium (Phenobarbital Inj 130 Mg/1 Ml Vial) 130 mg IVP X1 ONE Stop: 03/05/25 11:46 Last Admin: 03/05/25 12:15 Dose: 130 mg Documented By: VG Comments: BOTTLE NOT SCANNING Potassium Chloride (Potassium Chloride 20 Meq Tabcr) 40 meq PO X1 ONE Stop: 03/05/25 11:24 Last Admin: 03/05/25 12:14 Dose: 40 meq Documented By: VG See above Consultations Consultation(s) initiated? (list below): Yes Consultation #1 (Physician, Specialty, Details): see above Diagnosis Shortness of Breath Differential Diagnosis: acute exacerbation of chronic obstructive airways disease, congestive heart failure, community acquired pneum onia and other (alcohol withdrawal seizure, alcohol withdrawal ) Most likely diagnosis given after review of the tests above:: Alcohol withdrawal Alcohol withdrawal seizure Hypokalemia Hyperventilation Admission Indicated Admission indicated?: indicated Admission Request Was there a request for admission?: Yes Admission Attestation Admission request attestation: Discussed case with [] from Hospitalist service regarding admission. Discussed patients ED course, exam findings, labs, and radiology results. The Hospitalist [agrees,declines] to accept the patient for admission. Disposition Plan Disposition Plan: Admit Critical Care Time Critical Care Time Critical Care Time: Yes Total Critical Care Time (min.): 45 Attestation: The high probability of sudden, clinically significant deterioration in the patient's condition required the highest level of my preparedness to intervene urgently. The services I provided to this patient were to treat and/or prevent clinically significant deterioration. Services included the following: chart data review, reviewing nursing notes and/or old charts, documentation time, instructional design consultant collaboration regarding findings and treatment options, medication orders and management, direct patient care, vital sign assessments and ordering, interpreting and reviewing diagnostic studies and lab tests. Aggregate critical care time includes only time during which I was engaged in work directly related to the patient's care, as described above, whether at bedside or elsewhere in the Emergency Department. It did not include time spent performing other reported procedures or the services of residents, students, nurses or physician assistants. Discharge Plan Plan Patient Disposition: Admit Acute Care w/in Hospital Problem List Clinical Impression: Alcohol withdrawal, Alcohol withdrawal seizure, Hypokalemia, Hyperventilation
[2025-03-05] MEDS: PHENobarbital INJ 130 MG/1 ML VIAL IVP (12:15)
[2025-03-05 12:58] LABS: Collection Type, Urine Clean Catch
[2025-03-05 13:08] LABS: Reflex Lactate? Y
[2025-03-05 13:26] LABS: Amphetamine/Methamp Scrn,U Positive (Negative); Barbiturate Screen,Urine Negative (Negative); Benzodiazepines Screen,Urine Negative (Negative); Benzoylecgonine Screen, Ur Positive (Negative); Fentanyl Screen,Urine Negative (Negative); Opiate Screen,Urine Negative (Negative); THC Screen,Urine Positive (Negative)
[2025-03-05 13:37] LABS: Bacteria,Urine Rare; Bilirubin,Urine Negative (Negative); Blood,Urine Negative (Negative); Clarity,Urine Clear (Clear/Hazy); Color,Urine Lt-Yellow (Lt Yel-Yel); Culture Indicated,Urine Not Indicated; Glucose, Urine Negative (Negative); Ketones,Urine 4+ (Negative); Leukocyte Esterase,Urine Negative (Negative); Nitrite,Urine Negative (Negative); PH,Urine 7.0 (5.0-7.0); Protein,Urine Trace (Neg - Trace); RBC,Urine 2 /hpf (0-3); Specific Gravity,Urine 1.018 (1.001-1.035); Squamous Epithelial Cell,Urine < 1 /hpf (0-5); Urobilinogen,Urine Negative mg/dL (0.0-1.0); WBC,Urine < 1 /hpf (0-5)
[2025-03-05 13:47] LABS: Lactic Acid, 3 HR 0.9 mMol/L (0.4-2.0)
--- NOTE | 2025-03-05 14:41 | PC.CC ---
RODGER [place], met with patient at bedside give current admission. Patient was alert and engaged. Patient reports that she lives with her son and his family in [place]. Patient states that she is able to do all her basic self-care needs. Patient sees a doctor at [facility], patient reports that the last time she seen her PCP was 3 months ago. Patient reports that her son or [facility] bus will transports her to doctor appointments. Patient anticipates returning home and that her son Joe will transport her home. Patient reports that her son Joe is her decision maker. Patient reports history of marijuana and alcohol use. Patient denies smoking cigarettes. STONEWORK SUPERVISOR offered treatment information, patient declined information. 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 Patient Pharmacy [facility] Patient is not currently receiving Dialysis or Chemotherapy.
[2025-03-05 15:00] VITALS: BP 129/97; PULSE 108; RESP 12; TEMP 36.6; O2SAT 100
--- NOTE | 2025-03-05 16:17 | ESHP_ITS ---
<Statement entered by Christina Paige MD - 03/08/25 08:02> I reviewed above note and agree with findings and plans. I have also personally examined the patient with medicine team and went over assessment and plan with medical team including gallery intern and resident physician. <Statement entered by Owen Shirley MD - 03/06/25 13:47> A 54-year-old female patient and known case of any medical condition presented to the ED due to headache that started this morning associated with vomiting. Patient reported that the headache has been worsening since she woke up and was complicated by food content vomit. Patient denied any neurological symptoms, and no gastrointestinal symptoms. Her questioning patient reported that she drinks 5-6 beers per day, she also uses smokes weed, use methamphetamine, however she mentioned that she has never used methamphetamine for the past year. She also reported that she has never used cocaine for the past 2 years. She reported that last drink was yesterday night. She mentioned that she has no intention to quit drinking or using drugs. While the patient was in the ED she had a seizure episode which was tonic-clonic witnessed by the title i coordinator and the ED staff. Patient was given Ativan. CT scan was ordered for the brain it was negative for any hemorrhage or mass effect. Facial CT scan showed possible small fracture of the send moderate bone on the left side. Also showed soft tissue hematoma overlying the right frontal bone. There was also small tiny dependent fluid collection in the right frontal sinus. It also showed fracture of the nasal bones bilaterally and then defined tiny fracture of the stigmatic arch on the left. There was no need any maxillofacial surgery intervention at that time. Patient was admitted for first-time seizure workup which is most likely secondary to alcohol drawl and also alcohol withdrawal symptoms. - Patient's plan and care discussed with my attending, Dr. Royal Shirley MD Internal Medicine PGY-3 Documentation for date of: 03/05/25 HPI History of Present Illness Chief complaint: Headache and vomiting History of present illness: Patient is a 54 year old female with PMH of chronic alcohol use who presents to the ED on 03/05/25 for n/v followed by dizziness and lightheadedness after vomiting this morning. Reports that she fell this morning but does not recall how she fell or what transpired. Reports mild tremors when she abstains from drinking for a day but denies history of seizures. Last drink yesterday. Denies chest pain, shortness of breath, palpitations, and bloody emesis. N/v resolved. On exam, patient was tachycardic. Had large hematoma on her forehead and dried blood on the side of her mouth. No tremors noted. Patient lives at home alone. Reports she is not interested in abstaining from alcohol. ED Course: -Initial vitals were significant for tachycardia HR 115. Otherwise normal vitals. -Labs significant for potassium 3.0, bicarb 19.9, lactic 5.6, total bilirubin 1.4. CBC unremarkable. - EKG showed sinus tachycardia - UA showed 4+ ketones, otherwise negative for UTI. - Utox positive for cocaine, meth, and marijuana -Imaging: CT head negative for acute infarct. Face CT showed soft tissue hematoma overlying right frontal bone, bilateral fractures of nasal bones, and tiny fracture of left zygomatic arch. 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 Cervical CT showed prominent degenerative disc disease at C4-C7, negative for acute trauma. CXR unremarkable. -In the ED, patient was given 1 L NS bolus, levetiracetam 1500 mg x 1, Ativan 1 mg x 1, Zofran 4 mg x 1, phenobarbital 130 mg x 1, potassium chloride 40 mEq -Patient was admitted for management of possible alcohol withdrawal seizure. Review of Systems Review of systems otherwise negative except what is mentioned above. Past Medical History: as above. Family History: noncontributory Surgical History: tubal ligation 20 years ago Social History: Drinks couple of beers twice a week for the past 30 years. Denies history of smoking denies recreational and illicit drug use Current Medications: ibuprofen prn for pain per patient Allergies: morphine (rash), iodine contrast (rash Review of Systems Review of Systems Systems Reviewed: All systems reviewed, normal except as documented Exam Vital Signs Temp Pulse Resp BP Pulse Ox O2 Del Method 98 F 108 H 12 129/97 H 100 Room Air 03/05/25 15:00 03/05/25 15:00 03/05/25 15:00 03/05/25 15:00 03/05/25 15:00 03/05/25 15:00 Narrative Exam Physical Exam General: Awake and in no acute distress. Conversational. Cachectic. HEENT: Normocephalic, atraumatic, mucous membranes dry. Large hematoma at right temporal lobe. Dried blood across right cheek. Dried blood on nose bridge. Heart: Tachycardic. Regular rate and rhythm, normal S1 and S2, no murmurs. Lungs: Clear to auscultation with no wheezing or crackles. Abdomen: Soft, nondistended, nontender, positive bowel sounds. No guarding or rebound tenderness. Neurologic: Alert and oriented x3, no gross neurological deficit, and patient able to move all 4 extremities. No tremors. Extremities: No edema. Skin: No rash. Results: Labs 03/06/25 04:27 03/06/25 04:27 Labs: Short CBC 03/05/25 Range/Units 10:02 WBC 10.1 (3.6-11.0) Thou/mm3 Hgb 13.3 (12.0-16.0) g/dL Hct 38.1 (36.0-46.0) % Plt Count 214 (140-440) Thou/mm3 BMP 03/05/25 10:02 Sodium 142 Potassium 3.0 L Chloride 102 Carbon Dioxide 19.9 L BUN 9 Creatinine 0.8 Glucose 157 H Calcium 9.0 Cardiac Enzymes 03/05/25 Range/Units 10:02 Troponin I < 0.002 (0.0-0.045) ng/mL Liver Function 03/05/25 Range/Units 10:02 Total Bilirubin 1.4 H (0.3-1.2) mg/dL AST 32 (0-34) U/L ALT 12 (10-49) U/L Alkaline Phosphatase 88 (46-116) U/L Albumin 4.6 (3.5-5.0) gm/dL Urine 03/05/25 Range/Units 12:03 Urine Color Lt-Yellow (Lt Yel-Yel) Urine Clarity Clear (Clear/Hazy) Urine pH 7.0 (5.0-7.0) Ur Specific [place] 1.018 (1.001-1.035) Urine Protein Trace (Neg - Trace) Urine Glucose (UA) Negative (Negative) ABG Interpretation ABG results: 03/05/25 10:50 ABG pH 7.54 H ABG pCO2 23 L ABG pO2 103 ABG HCO3 20 ABG O2 Saturation 99 H ABG Base Excess -1 Quality Measures Quality Measures none Medications Home Medications and Allergies Home Medications ?Medication ?Instructions ?Recorded ?Confirmed ?Type No Known Home Medications 03/05/2502/09 History Allergies Allergy/AdvReac Type Severity Reaction Status Date / Time morphine Allergy Intermediate ITCHING Verified 03/05/25 08:37 Contrast Media Allergy Intermediate ITCHING Uncoded 03/05/25 08:37 Visit Medications Acetaminophen (Acetaminophen 325 Mg Tablet) 650 mg PO Q6H PRN PRN Reason: Fever >101.5 or pain 1-3 Stop: 04/04/25 15:45 Diazepam (Diazepam Inj 5 Mg/Ml Vial 2 Ml) 5 mg IVP X1 PRN PRN Reason: Breakthrough Agitation Diazepam (Diazepam Inj 5 Mg/Ml Vial 2 Ml) 2.5 mg IVP Q2HR PRN PRN Reason: CIWA SCORE 15-18 Stop: 03/10/25 16:07 Diazepam (Diazepam Inj 5 Mg/Ml Vial 2 Ml) 5 mg IVP Q2HR PRN PRN Reason: CIWA SCORE 19-22 Stop: 03/10/25 16:07 Heparin Sodium (Porcine) (Heparin Sod Inj 5000 Unit/Ml Vial) 5,000 unit SC Q12HR JULISSA Stop: 03/19/25 20:59 Lorazepam (Lorazepam 0.5 Mg Tablet) 0.5 mg PO Q4HR PRN PRN Reason: CIWA Score 2-6 Stop: 03/10/25 16:07 Lorazepam (Lorazepam 0.5 Mg Tablet) 1 mg PO Q4HR PRN PRN Reason: CIWA SCORE 7-11 Stop: 03/10/25 16:07 Lorazepam (Lorazepam 0.5 Mg Tablet) 2 mg PO Q4HR PRN PRN Reason: CIWA SCORE 12-15 Stop: 03/10/25 16:07 Lorazepam (Lorazepam 2 Mg/Ml Vial) 2 mg IVP Q10MIN PRN PRN Reason: breakthrough seizures Stop: 03/05/25 18:10 Ondansetron HCl (Ondansetron Inj 2 Mg/Ml Inj 2 Ml) 4 mg IVP Q6H PRN; Protocol PRN Reason: NAUSEA OR VOMITING Stop: 04/04/25 15:45 Discontinued Medications Phenobarbital Sodium 130 mg/ (Sodium Chloride 12 ml) 0 mg IVP X1 ONE Stop: 03/05/25 11:31 Last Admin: 03/05/25 11:41 Dose: Not Given Sodium Chloride (Ns) 1,000 mls @ 999 mls/hr IV .Q1H1M ONE Stop: 03/05/25 10:06 Last Infusion: 03/05/25 11:40 Dose: Infused Levetiracetam (Levetiracetam Inj 100 Mg/Ml Vial 5ml) 1,500 mg IVP X1 ONE Stop: 03/05/25 10:17 Last Admin: 03/05/25 10:50 Dose: 1,500 mg Lorazepam (Lorazepam 2 Mg/Ml Vial) 1 mg IVP X1 ONE Stop: 03/05/25 10:17 Last Admin: 03/05/25 10:50 Dose: 1 mg Ondansetron HCl (Ondansetron Inj 2 Mg/Ml Inj 2 Ml) 4 mg IVP X1 ONE; Protocol Stop: 03/05/25 11:16 Last Admin: 03/05/25 11:26 Dose: 4 mg Phenobarbital Sodium (Phenobarbital Inj 130 Mg/1 Ml Vial) 130 mg IVP X1 ONE Stop: 03/05/25 11:46 Last Admin: 03/05/25 12:15 Dose: 130 mg Potassium Chloride (Potassium Chloride 20 Meq Tabcr) 40 meq PO X1 ONE Stop: 03/05/25 11:24 Last Admin: 03/05/25 12:14 Dose: 40 meq Assessment & Plan Plan Patient is a 54 year old female with PMH of chronic alcohol use who presents to the ED on 03/05/25 for n/v followed by dizziness and lightheadedness after vomiting this morning. Admitted to telemetry for management of alcohol withdrawal seizures. # 1st time Tonic-clonic Seizure #Alcohol withdrawal #Hx alcohol use - Presented with n/v followed by dizziness, denied tremors or weakness but complained of tremors and hand cramping earlier. Reports mild tremors with abstinence in the past but denies history of seizures. Reports 30 year alcohol use history, last drink last night. - No tremors noted on exam, AOx3. - EtOH < 0.3 - Liver enzymes within normal limits - S/p phenobarbitol in ED Plan: - [facility] protocol - Librium 25 mg q8hr, will de-escalate to BID after 2 days - Ativan 1 mg q10min max 3 doses for breakthrough seizures - Consulted neurology, appreciate recommendations - Seizure precautions - Aspiration precautions - Nurse bedside swallow, plan to start diet if passes - Ordered EEG - Ordered MRI without contrast - Folic acid and thiamine daily #Bilateral nasal bone fracture #Fracture of left zygomatic arch - Face CT showed soft tissue hematoma overlying right frontal bone, bilateral fractures of nasal bones, and tiny fracture of left zygomatic arch. 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 Plan: - Patient not complaining of any pain at this time - Tylenol prn for now - Follow up with ENT outpatient #Mild hyperbilirubinemia - Liver enzymes within normal limits - Abdominal exam benign - Possibly secondary to history of alcohol use vs cholestasis Plan: - Follow up hepatitis panel - Continue to monitor CMP #HAGMA with respiratory alkalosis #Lactic acidosis (resolved) Most likely 2/2 alcohol metabolic process - Anion gap 20, bicarb 19.9 - ABG pH 7.54, pCO2 23, likely compensatory respiratory alkalosis - Lactic 5.6 -> 0.9 s/p 1 L NS bolus Plan: - No active treatment at this time as lactic acidosis has resolved - Follow up AM CMP #Hx cocaine use #Hx meth use #Hx marijuana use - Denies illicit drug use however utox positive for cocaine, meth, and marijuana Plan: - Referral to social media campaign manager - Counseled on cessation #DJD of left TMJ #Degenerative disc disease C4-C7 Incidental finding on imaging. Cervical CT showed prominent degenerative disc disease at C4-C7, negative for acute trauma. Plan: - No active treatment at this time - Will need outpatient follow up Health Maintenance Disposition: telemetry DVT prophylaxis: heparin SQ GI prophylaxis: none Diet: pending bedside swallow CODE STATUS: Limited, no intubation Patient plan of care was discussed with the senior resident, Dr. Shirley, and attending, Dr. Paige. Kiki Bernal DO, PGY-1
[2025-03-05] MEDS: THIAMINE 100 MG TABLET PO (17:00)
[2025-03-05] MEDS: FOLIC ACID 1 MG TABLET PO (17:01)
[2025-03-05 18:21] LABS: Hepatitis A Antibody IgM Non Reactive (Non React); Hepatitis B Core Antibody IgM Non Reactive (Non React); Hepatitis B Surface Antigen Non Reactive (Non React); Hepatitis C Antibody Non Reactive (Non React)
[2025-03-05 18:57] VITALS: PULSE 104; RESP 20; RESP 98
[2025-03-05 19:32] VITALS: BP 127/86; PULSE 105; RESP 16; TEMP 36.8; O2SAT 95
[2025-03-05 20:00] VITALS: BP 142/87; PULSE 113; PULSE 97; RESP 17; TEMP 37.2; O2SAT 98
[2025-03-05] MEDS: HEPARIN SOD INJ 5000 UNIT/ML VIAL SC (20:14)
[2025-03-05] MEDS: METOCLOPRAMIDE INJ 5 MG/ML VIAL 2 ML 10 MG IVP (21:50)
[2025-03-06] VITALS (9 sets, daily range): BP systolic 102–115; BP diastolic 74–85; PULSE 85–116; RESP 13–20; TEMP 36.3–37.1; O2SAT 94–99
[2025-03-06 05:17] LABS: Basophils # (Auto) 0.0 Thou/mm3 (0.0-0.2); Basophils % (Auto) 0 % (0-2.5); Eosinophils # (Auto) 0.1 Thou/mm3 (0.0-0.5); Eosinophils % (Auto) 1 % (0-10); Hematocrit 37.4 % (36.0-46.0); Hemoglobin 13.0 g/dL (12.0-16.0); Immature Granulocytes Auto 0.02 Thou/mm3 (0.00-0.00); Lymphocytes # (Auto) 1.6 Thou/mm3 (1.0-4.8); Lymphocytes % (Auto) 24 % (10-50); Mean Corpuscular HGB Conc 34.8 g/dl (31.0-37.0); Mean Corpuscular Hemoglobin 34.8 pg (25.0-35.0); Mean Corpuscular Volume 100 fL (80-100); Monocytes # (Auto) 0.6 Thou/mm3 (0.0-0.8); Monocytes % (Auto) 8 % (0-12); Neutrophils # (Auto) 4.6 Thou/mm3 (1.8-7.7); Neutrophils % (Auto) 67 % (37-80); Nucleated Red Blood Cell # 0.00 Thou/mm3 (0.00-0.00); Nucleated Red Blood Cell % 0 /100 WBC (0); Platelet Count 204 Thou/mm3 (140-440); RDW Standard Deviation 49.0 fL (36.4-46.3); Red Blood Count 3.74 Miln/mm3 (4.00-5.20); White Blood Count 6.9 Thou/mm3 (3.6-11.0)
[2025-03-06 06:03] LABS: Alanine Aminotransferase 12 U/L (10-49); Albumin, Serum 4.2 gm/dL (3.5-5.0); Albumin/Globulin Ratio 1.6 (1.2-2.2); Alkaline Phosphatase 86 U/L (46-116); Anion Gap 12 (7-16); Aspartate Amino Transferase 30 U/L (0-34); BUN/Creatinine Ratio 11 Ratio (12-20); Bilirubin,Total 1.5 mg/dL (0.3-1.2); Blood Urea Nitrogen 8 mg/dL (9-23); Calcium 9.5 mg/dL (8.3-10.6); Calcium (Corrected) 9.5 mg/dL (8.5-10.1); Carbon Dioxide 22.8 mMol/L (20.0-31.0); Cardiac Risk Estimate 2.0 RATIO (3.7-5.6); Chloride 105 mMol/L (98-107); Cholesterol 195 mg/dL (132-200); Creatinine (Component) 0.7 mg/dL (0.6-1.3); Estimated Creatinine Clearance 80.8 mL/min (>60); Globulin 2.6 gm/dL (2.3-3.5); Glucose 82 mg/dL (74-106); HDL Cholesterol 99 mg/dL (40-60); LDL Cholesterol,Calculated 76 mg/dL (0-130); Magnesium 2.0 mg/dL (1.6-2.6); Osmolality,Calculated 276 (275-295); Phosphorous 3.3 mg/dL (2.4-5.1); Potassium 3.5 mMol/L (3.4-5.1); Sodium 140 mMol/L (136-145); Thyroid Stimulating Hormone 1.49 uIU/mL (0.55-4.78); Total Protein 6.8 gm/dL (5.7-8.2); Triglycerides 101 mg/dL (30-150); eGFR > 60 See Note
[2025-03-06] MEDS: FOLIC ACID 1 MG TABLET PO (08:07)
[2025-03-06] MEDS: THIAMINE 100 MG TABLET PO (08:07)
[2025-03-06] MEDS: HEPARIN SOD INJ 5000 UNIT/ML VIAL SC ×2 (08:08→20:26)
[2025-03-06] MEDS: HYDROcodone/APAP 5/325 TABLET 1 TAB PO ×3 (08:55→22:22)
--- NOTE | 2025-03-06 12:56 | ESPR_ITS ---
<Statement entered by Owen Shirley MD - 03/06/25 16:01> Patient was seen and examined at bedside. I agree in the assessment and plan on this note. - Patient's plan and care discussed with my attending, Dr. Raul Shirley MD Internal Medicine PGY-3 Documentation for date of: 03/06/25 Subjective Subjective Interval history: No acute events overnight. Patient had CIWA score of 10 this morning, notably mainly for severe headache and neck pain. Patient was scheduled norco for this severe pain. Patient continues to be tachycardic, mainly due to the pain it seems. Patient's EEG was read as normal. Patient has not had any seizures in house. Patient is pending MRI. Exam Vital Signs Temp Pulse Resp BP Pulse Ox O2 Del Method 98.2 F 87 18 115/78 99 Room Air 03/06/25 12:00 03/06/25 12:00 03/06/25 12:00 03/06/25 12:00 03/06/25 12:00 03/06/25 12:00 Narrative Exam General: Awake and in no acute distress. Conversational. Cachectic. HEENT: Normocephalic, atraumatic, mucous membranes dry. Large hematoma at right temporal lobe. Dried blood across right cheek. Dried blood on nose bridge. Heart: Tachycardic. Regular rate and rhythm, normal S1 and S2, no murmurs. Lungs: Clear to auscultation with no wheezing or crackles. Abdomen: Soft, nondistended, nontender, positive bowel sounds. No guarding or rebound tenderness. Neurologic: Alert and oriented x3, no gross neurological deficit, and patient able to move all 4 extremities. Mild tremors. Extremities: No edema. Skin: No rash. Objective Labs 03/06/25 04:27 03/06/25 04:27 Labs: Laboratory Results - last 24 hr 03/05/25 03/05/25 03/05/25 10:02 12:03 12:37 WBC RBC Hgb Hct MCV MCH MCHC RDW Std Deviation Plt Count Neut % (Auto) Lymph % (Auto) [place] % (Auto) Eos % (Auto) Baso % (Auto) Neut # (Auto) Lymph # (Auto) [place] # (Auto) Eos # (Auto) Baso # (Auto) Immature Gran # (Auto) Absolute Nucleated RBC Immature Gran % Nucleated RBC % Sodium Potassium Chloride Carbon Dioxide Anion Gap BUN Creatinine Estim Creat Clear Calc eGFR BUN/Creatinine Ratio Glucose Calculated Osmolality Lactic Acid Calcium Corrected Calcium Phosphorus Magnesium Total Bilirubin AST ALT Alkaline Phosphatase Total Protein Albumin Globulin Albumin/Globulin Ratio Triglycerides Cholesterol LDL Cholesterol, Calc HDL Cholesterol Cholesterol/HDL Ratio TSH Ur Collection Type Clean Catch Urine Color Lt-Yellow Urine Clarity Clear Urine pH 7.0 Ur Specific [place] 1.018 Urine Protein Trace Urine Glucose (UA) Negative Urine Ketones 4+ A Urine Blood Negative Urine Nitrite Negative Urine Bilirubin Negative Urine Urobilinogen (Auto) Negative Ur Leukocyte Esterase Negative Urine RBC 2 Urine WBC < 1 Ur Squamous Epith Cells < 1 Urine Bacteria Rare Ur Culture Indicated? Not Indicated Urine Opiates Screen Negative Urine Fentanyl Screen Negative Ur Barbiturates Screen Negative U Amphetamin/Meth Scrn Positive A U Benzodiazepines Scrn Negative U Cocaine Metab Screen Positive A U Marijuana (THC) Screen Positive A Hepatitis A IgM Ab Non Reactive Hep Bs Antigen Non Reactive Hep B Core IgM Ab Non Reactive Hepatitis C Antibody Non Reactive 03/05/25 03/06/25 13:34 04:27 WBC 6.9 RBC 3.74 L Hgb 13.0 Hct 37.4 MCV 100 MCH 34.8 MCHC 34.8 RDW Std Deviation 49.0 H Plt Count 204 Neut % (Auto) 67 Lymph % (Auto) 24 [place] % (Auto) 8 Eos % (Auto) 1 Baso % (Auto) 0 Neut # (Auto) 4.6 Lymph # (Auto) 1.6 [place] # (Auto) 0.6 Eos # (Auto) 0.1 Baso # (Auto) 0.0 Immature Gran # (Auto) 0.02 H Absolute Nucleated RBC 0.00 Immature Gran % 0 Nucleated RBC % 0 Sodium 140 Potassium 3.5 D Chloride 105 Carbon Dioxide 22.8 Anion Gap 12 BUN 8 L Creatinine 0.7 Estim Creat Clear Calc 80.8 eGFR > 60 BUN/Creatinine Ratio 11 L Glucose 82 D Calculated Osmolality 276 Lactic Acid 0.9 Calcium 9.5 Corrected Calcium 9.5 Phosphorus 3.3 Magnesium 2.0 Total Bilirubin 1.5 H AST 30 ALT 12 Alkaline Phosphatase 86 Total Protein 6.8 Albumin 4.2 Globulin 2.6 Albumin/Globulin Ratio 1.6 Triglycerides 101 Cholesterol 195 LDL Cholesterol, Calc 76 HDL Cholesterol 99 H Cholesterol/HDL Ratio 2.0 L TSH 1.49 Ur Collection Type Urine Color Urine Clarity Urine pH Ur Specific [place] Urine Protein Urine Glucose (UA) Urine Ketones Urine Blood Urine Nitrite Urine Bilirubin Urine Urobilinogen (Auto) Ur Leukocyte Esterase Urine RBC Urine WBC Ur Squamous Epith Cells Urine Bacteria Ur Culture Indicated? Urine Opiates Screen Urine Fentanyl Screen Ur Barbiturates Screen U Amphetamin/Meth Scrn U Benzodiazepines Scrn U Cocaine Metab Screen U Marijuana (THC) Screen Hepatitis A IgM Ab Hep Bs Antigen Hep B Core IgM Ab Hepatitis C Antibody ABG Interpretation ABG results: 03/05/25 10:50 ABG pH 7.54 H ABG pCO2 23 L ABG pO2 103 ABG HCO3 20 ABG O2 Saturation 99 H ABG Base Excess -1 Quality Measures Quality Measures VTE prophylaxis Assessment & Plan Assessment Current Active Medications: Generic Name Dose Route Start Last Admin Trade Name Freq PRN Reason Stop Dose Admin Acetaminophen 650 mg 03/05/25 15:46 Acetaminophen 325 Mg Tablet PO 04/04/25 15:45 Q6H PRN Fever >101.5 or pain 1-3 Chlordiazepoxide HCl 25 mg 03/06/25 14:00 Chlordiazepoxide Hcl 25 Mg Capsule PO 03/07/25 13:59 Q8HR JULISSA Chlordiazepoxide HCl 25 mg 03/08/25 21:00 Chlordiazepoxide Hcl 25 Mg Capsule PO 03/10/25 20:59 BID JULISSA Diazepam 5 mg 03/05/25 16:08 Diazepam Inj 5 Mg/Ml Vial 2 Ml IVP 03/10/25 16:07 Q2HR PRN CIWA SCORE 19-22 Diazepam 2.5 mg 03/05/25 16:29 Diazepam Inj 5 Mg/Ml Vial 2 Ml IVP 03/10/25 16:07 Q2HR PRN CIWA SCORE 8-13 Folic Acid 1 mg 03/05/25 16:45 03/06/25 08:07 Folic Acid 1 Mg Tablet PO 04/04/25 16:44 1 mg QDAY JULISSA Administration Heparin Sodium (Porcine) 5,000 unit 03/05/25 21:00 03/06/25 08:08 Heparin Sod Inj 5000 Unit/Ml Vial SC 03/19/25 20:59 5,000 unit Q12HR JULISSA Administration Lorazepam 0.5 mg 03/05/25 16:08 03/06/25 00:17 Lorazepam 0.5 Mg Tablet PO 03/10/25 16:07 0.5 mg Q4HR PRN Administration CIWA Score 2-6 Lorazepam 1 mg 03/05/25 16:08 03/06/25 08:55 Lorazepam 0.5 Mg Tablet PO 03/10/25 16:07 1 mg Q4HR PRN Administration CIWA SCORE 7-11 Ondansetron HCl 4 mg 03/05/25 21:40 Ondansetron Inj 2 Mg/Ml Inj 2 Ml IVP 04/04/25 15:45 Q4HR PRN NAUSEA OR VOMITING Protocol Thiamine HCl 100 mg 03/05/25 16:45 03/06/25 08:07 Thiamine 100 Mg Tablet PO 04/04/25 16:44 100 mg QDAY JULISSA Administration Plan Patient is a 54 year old female with PMH of chronic alcohol use who presents to the ED on 03/05/25 for n/v followed by dizziness and lightheadedness after vomiting this morning. Admitted to telemetry for management of alcohol withdrawal seizures. #1st time Tonic-clonic Seizure #Alcohol withdrawal #Hx alcohol use - Presented with n/v followed by dizziness, denied tremors or weakness but complained of tremors and hand cramping earlier. Reports mild tremors with abstinence in the past but denies history of seizures. Reports 30 year alcohol use history, last drink last night. - No tremors noted on exam, AOx3. - EtOH < 0.3 - Liver enzymes within normal limits - S/p phenobarbitol in ED - EEG normal Plan: - CIWA protocol - Librium 25 mg q8hr, will de-escalate to BID after 2 days - Ativan 0.5 mg po q4hr prn - Valium PRN q2hr - Consulted neurology, appreciate recommendations - Seizure precautions - Aspiration precautions - Passed bedside swallow -> regular diet - Ordered MRI without contrast - Folic acid and thiamine daily #Mild hyperbilirubinemia - Liver enzymes within normal limits - Abdominal exam benign - Possibly secondary to history of alcohol use vs cholestasis Plan: - Follow up hepatitis panel - Continue to monitor CMP #Hx cocaine use #Hx meth use #Hx marijuana use - Denies illicit drug use however utox positive for cocaine, meth, and marijuana Plan: - Referral to neonatal social worker - Counseled on cessation #Bilateral nasal bone fracture #Fracture of left zygomatic arch - Face CT showed soft tissue hematoma overlying right frontal bone, bilateral fractures of nasal bones, and tiny fracture of left zygomatic arch. 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 Plan: - Patient not complaining of any pain at this location at this time - Tylenol prn for now - Follow up with ENT outpatient #DJD of left TMJ #Degenerative disc disease C4-C7 Incidental finding on imaging. Cervical CT showed prominent degenerative disc disease at C4-C7, negative for acute trauma. Plan: - No active treatment at this time - Will need outpatient follow up #HAGMA with respiratory alkalosis (resolved) #Lactic acidosis (resolved) Most likely 2/2 alcohol metabolic process - Anion gap 20, bicarb 19.9 - ABG pH 7.54, pCO2 23, likely compensatory respiratory alkalosis - Lactic 5.6 -> 0.9 s/p 1 L NS bolus Plan: - No active treatment at this time as lactic acidosis has resolved - Follow up AM [facility] Health Maintenance Disposition: telemetry DVT prophylaxis: heparin SQ GI prophylaxis: none Diet: Regular CODE STATUS: Limited, no intubation Patient plan of care was discussed with the attending physician, Dr. Carter & senior resident Dr. Casper Cox MD PGY-1 Attending Provider Attestation/Addendum I have discussed and was present for the essential components of the history, physical examination, diagnosis, and treatment plan with the resident. I agree with the patient's care as documented by the resident and amended herein by me. Maurice Carter DO. Although this document has been carefully reviewed, there may still be some phonetic and other typographical errors. These errors are purely grammatical due to imperfections in the software program and should not be construed in any way to compromise the substance of the patient's medical care during this visit. Patient seen and evaluated in the AM, no acute events overnight, labs large unremarkable, patient feeling well, CIWA reported to be 10 however patient much improved at time of my bedside visit. EEG within normal limits, MRI brain pending. Will continue Librium folic acid and thiamine for now with as needed Ativan as needed for withdrawal. Likely DC home in 1 to 2 days pending MRI brain.
--- NOTE | 2025-03-06 13:19 | PC.PT ---
Patient is safe to ambulate to the bathroom and in the halls with 1 staff and no AD. RN made aware.
[2025-03-06] MEDS: DIAZEPAM INJ 5 MG/ML VIAL 2 ML 2.5 MG IVP (18:27)
--- NOTE | 2025-03-06 19:10 | PD.VCONSULT1 ---
Telemedicine visit statement This visit was conducted with the use of interactive audio and video telecommunications system that permits real time communication between the patient and the provider. Patient's verbal consent for virtual visit was obtained on 03/06/25 at 1910. History of Present Illness History of Present Illness History of present illness: Patient is a 54 year old female with chronic alcohol use who presented to the ER on 03/05/25 for nausea and vomiting followed by dizziness and lightheadedness this morning. Reports that she fell this morning but does not recall how she fell or what transpired. Reports mild tremors when she abstains from drinking for a day but denies any history of seizures. Last drink was yesterday. Denies chest pain, shortness of breath, palpitations, and hematemesis. Patient lives at home alone. Reports she is not interested in abstaining from alcohol. workup in the ER: vitals were significant for tachycardia HR 115. Otherwise normal vitals. Labs significant for potassium 3.0, bicarb 19.9, lactic 5.6, total bilirubin 1.4. CBC unremarkable. EKG showed sinus tachycardia UA showed 4+ ketones, otherwise negative for UTI. Utox positive for cocaine, meth, and marijuana Imaging: CT head negative for acute infarct. Face CT showed soft tissue hematoma overlying right frontal bone, bilateral fractures of nasal bones, and tiny fracture of left zygomatic arch. 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 Cervical CT showed prominent degenerative disc disease at C4-C7, negative for acute trauma. CXR unremarkable. Patient was given 1 L NS bolus, levetiracetam 1500 mg x 1, Ativan 1 mg x 1, Zofran 4 mg x 1, phenobarbital 130 mg x 1, potassium chloride 40 mEq -Patient was admitted for management of possible alcohol withdrawal seizure And neurology was consulted. Past Medical History Past Medical History CARDIAC: Negative Congestive Heart Failure RESPIRATORY: Negative Chronic Obstructive Pulmonary Disease (COPD) GENITOURINARY: Negative Renal Disease ENDOCRINE: Negative Diabetes Mellitus Type 1 or Diabetes Mellitus Type 2 Social History SMOKING STATUS: Never smoker Meds Home Medications and Allergies Home Medications ?Medication ?Instructions ?Recorded ?Confirmed ?Type No Known Home Medications 03/05/25 03/05/25 History Allergies Allergy/AdvReac Type Severity Reaction Status Date / Time morphine Allergy Intermediate ITCHING Verified 03/05/25 08:37 Contrast Media Allergy Intermediate ITCHING Uncoded 03/05/25 08:37 Virtual exam Vital Signs Temp Pulse Resp BP Pulse Ox O2 Del Method 98.0 F 85 18 112/85 H 97 Room Air 03/06/25 16:00 03/06/25 16:00 03/06/25 16:00 03/06/25 16:00 03/06/25 16:00 03/06/25 16:00 Results Labs 03/06/25 04:27 03/06/25 04:27 Labs: Short CBC 03/06/25 Range/Units 04:27 WBC 6.9 (3.6-11.0) Thou/mm3 Hgb 13.0 (12.0-16.0) g/dL Hct 37.4 (36.0-46.0) % Plt Count 204 (140-440) Thou/mm3 BMP 03/06/25 04:27 Sodium 140 Potassium 3.5 D Chloride 105 Carbon Dioxide 22.8 BUN 8 L Creatinine 0.7 Glucose 82 D Calcium 9.5 Liver Function 03/06/25 Range/Units 04:27 Total Bilirubin 1.5 H (0.3-1.2) mg/dL AST 30 (0-34) U/L ALT 12 (10-49) U/L Alkaline Phosphatase 86 (46-116) U/L Albumin 4.2 (3.5-5.0) gm/dL ABG Interpretation ABG results: 03/05/25 10:50 ABG pH 7.54 H ABG pCO2 23 L ABG pO2 103 ABG HCO3 20 ABG O2 Saturation 99 H ABG Base Excess -1 Assessment & Plan Problem List (1) Alcohol withdrawal seizure: Status: Acute Assessment and plan: no seizures reported since admission EEG : showed no epileptiform discharges. No need to continue AED. Continue to monitor and treat DT.
[2025-03-07] VITALS: BP 95/65; PULSE 85; PULSE 92; RESP 13; TEMP 36.7; O2SAT 98
[2025-03-07 04:00] VITALS: BP 105/75; PULSE 78; PULSE 81; RESP 12; TEMP 36.2; O2SAT 98
[2025-03-07 05:24] LABS: Basophils # (Auto) 0.0 Thou/mm3 (0.0-0.2); Basophils % (Auto) 1 % (0-2.5); Eosinophils # (Auto) 0.1 Thou/mm3 (0.0-0.5); Eosinophils % (Auto) 2 % (0-10); Hematocrit 39.8 % (36.0-46.0); Hemoglobin 13.4 g/dL (12.0-16.0); Immature Granulocytes Auto 0.00 Thou/mm3 (0.00-0.00); Lymphocytes # (Auto) 1.8 Thou/mm3 (1.0-4.8); Lymphocytes % (Auto) 37 % (10-50); Mean Corpuscular HGB Conc 33.7 g/dl (31.0-37.0); Mean Corpuscular Hemoglobin 33.9 pg (25.0-35.0); Mean Corpuscular Volume 101 fL (80-100); Monocytes # (Auto) 0.5 Thou/mm3 (0.0-0.8); Monocytes % (Auto) 11 % (0-12); Neutrophils # (Auto) 2.4 Thou/mm3 (1.8-7.7); Neutrophils % (Auto) 49 % (37-80); Nucleated Red Blood Cell # 0.00 Thou/mm3 (0.00-0.00); Nucleated Red Blood Cell % 0 /100 WBC (0); Platelet Count 158 Thou/mm3 (140-440); RDW Standard Deviation 47.8 fL (36.4-46.3); Red Blood Count 3.95 Miln/mm3 (4.00-5.20); White Blood Count 4.8 Thou/mm3 (3.6-11.0)
[2025-03-07] MEDS: HYDROcodone/APAP 5/325 TABLET 1 TAB PO (05:32)
[2025-03-07 05:33] VITALS: BMI 20.3
[2025-03-07 05:45] LABS: Alanine Aminotransferase 10 U/L (10-49); Albumin, Serum 4.3 gm/dL (3.5-5.0); Albumin/Globulin Ratio 1.9 (1.2-2.2); Alkaline Phosphatase 78 U/L (46-116); Anion Gap 12 (7-16); Aspartate Amino Transferase 27 U/L (0-34); BUN/Creatinine Ratio 6 Ratio (12-20); Bilirubin,Total 1.0 mg/dL (0.3-1.2); Blood Urea Nitrogen < 5 mg/dL (9-23); Calcium 9.2 mg/dL (8.3-10.6); Calcium (Corrected) 9.2 mg/dL (8.5-10.1); Carbon Dioxide 24.6 mMol/L (20.0-31.0); Chloride 105 mMol/L (98-107); Creatinine (Component) 0.8 mg/dL (0.6-1.3); Estimated Creatinine Clearance 72.1 mL/min (>60); Globulin 2.3 gm/dL (2.3-3.5); Glucose 106 mg/dL (74-106); Magnesium 1.9 mg/dL (1.6-2.6); Osmolality,Calculated 280 (275-295); Phosphorous 3.5 mg/dL (2.4-5.1); Potassium 3.5 mMol/L (3.4-5.1); Sodium 142 mMol/L (136-145); Total Protein 6.6 gm/dL (5.7-8.2); eGFR > 60 See Note
[2025-03-07 08:00] VITALS: BP 99/73; PULSE 81; PULSE 85; RESP 16; TEMP 36.3; O2SAT 95
--- NOTE | 2025-03-07 08:11 | PD.HHPROG ---
Documentation for date of: 03/07/25 Exam Vital Signs Temp Pulse Resp BP Pulse Ox O2 Del Method 97.3 F 81 16 99/73 95 Room Air 03/07/25 08:00 03/07/25 08:00 03/07/25 08:00 03/07/25 08:00 03/07/25 08:00 03/07/25 08:00 Objective - Hospitalist Labs Diagram: 03/07/25 04:20 03/07/25 04:20 Labs: Laboratory Results - last 24 hr 03/07/25 04:20 WBC 4.8 RBC 3.95 L Hgb 13.4 Hct 39.8 MCV 101 H MCH 33.9 MCHC 33.7 RDW Std Deviation 47.8 H Plt Count 158 D Neut % (Auto) 49 Lymph % (Auto) 37 [place] % (Auto) 11 Eos % (Auto) 2 Baso % (Auto) 1 Neut # (Auto) 2.4 Lymph # (Auto) 1.8 [place] # (Auto) 0.5 Eos # (Auto) 0.1 Baso # (Auto) 0.0 Immature Gran # (Auto) 0.00 Absolute Nucleated RBC 0.00 Immature Gran % 0 Nucleated RBC % 0 Sodium 142 Potassium 3.5 Chloride 105 Carbon Dioxide 24.6 Anion Gap 12 BUN < 5 L Creatinine 0.8 Estim Creat Clear Calc 72.1 eGFR > 60 BUN/Creatinine Ratio 6 L Glucose 106 Calculated Osmolality 280 Calcium 9.2 Corrected Calcium 9.2 Phosphorus 3.5 Magnesium 1.9 Total Bilirubin 1.0 D AST 27 ALT 10 Alkaline Phosphatase 78 Total Protein 6.6 Albumin 4.3 Globulin 2.3 Albumin/Globulin Ratio 1.9 ABG Interpretation ABG results: 03/05/25 10:50 ABG pH 7.54 H ABG pCO2 23 L ABG pO2 103 ABG HCO3 20 ABG O2 Saturation 99 H ABG Base Excess -1 Assessment & Plan Time Spent with Patient Time: Total time spent is greater than 50% in coordination of care (as documented) at patient's floor/unit and/or counseling patient: Quality Measures Quality Measures VTE prophylaxis
[2025-03-07] MEDS: THIAMINE 100 MG TABLET PO (08:18)
[2025-03-07] MEDS: FOLIC ACID 1 MG TABLET PO (08:18)
[2025-03-07] MEDS: HEPARIN SOD INJ 5000 UNIT/ML VIAL SC (08:18)
[2025-03-07 11:35] VITALS: BP 103/69; PULSE 84; RESP 14; TEMP 36.2; O2SAT 98
--- NOTE | 2025-03-07 15:20 | ESDS_ITS ---
Planned Discharge Date 03/07/25 DS: Providers Provider Date of admission: 03/05/25 15:46 Primary care physician: Physician No Primary/Family Admitting Provider: Christina Paige MD Attending Provider on Admission: Christina Paige MD Consults: 03/05/25 15:48 Consult to Neurology / Tele-Neurology Stat Comment: Consulting Provider: Arian Christina 03/06/25 07:14 Referral Physical Therapy Routine Comment: Physician Instructions: Attending Provider on DC: Richard Carter DO Discharging Provider: Richard Carter DO Diagnosis Problem List Completed Was Problem List Reviewed/Reconciled?: Yes Hospital Course - Hospitalist Hospital Course Hospital course: Patient is a 54-year-old male with a significant past medical history of polysubstance abuse, initially presented to the ED due to headache with associated nausea and vomiting. Patient endorses drinking 5-6 beers per day, using marijuana, and methamphetamines. She reported her last drink 1 day prior to admission. While in the ED, she did have a tonic-clonic witnessed seizure and was given Ativan, likely secondary to intoxication with multiple substances and alcohol withdrawal. CT head was ordered which was negative for any acute intracranial pathology to include stroke. CT of the patient's facial bones demonstrated fractures of the patient's nasal bones bilaterally and a tiny fracture with minimal internal angulation of the midportion of the zygomatic arch on the patient's left side. As well as a soft tissue hematoma overlying the right frontal bone. Cervical spine CT was negative for trauma chest x-ray was unremarkable. EKG demonstrated sinus tachycardia on arrival however did improve at time of discharge. An EEG was performed and was normal. An MRI was ordered however seizure likely secondary to withdrawal in setting of polysubstance abuse hence I did not feel it was needed. During the hospital stay she was started on thiamine and folic acid as well as Librium 25 mg every 8 hours as well as as needed Ativan for any DTs. On day of discharge, CIWA was 0, the patient did not demonstrate any asterixis on physical examination. The patient had no further episodes of seizure during her hospital stay. She was alert and oriented was able to hold a normal conversation with me and we agreed it was safe for her to go home. I did extensively employee counselor her on the potential harms of continued drug and alcohol use and she understood. On day of discharge, the patient was stable, afebrile, tolerating p.o. intake and ambulatory at time of discharge home. The patient was instructed to return to the emergency department for any persistent or worsening symptoms, all questions were answered satisfactorily. Significant problem list: #Tonic-clonic seizure with no prior history, likely secondary to alcohol withdrawal and/or amphetamine and cocaine intoxication #Lactic acidosis #Acute alcohol withdrawal #Methamphetamine intoxication #Cocaine intoxication #Hyperbilirubinemia, mild #Nasal bone fracture, bilateral #Zygomatic arch fracture, left Status at Discharge Cognitive/behavioral status at discharge: Stable, ANO x 4, normal affect and mood. Overall status at discharge: patient is back to baseline Time Spent with Patient Time attestation: Total time spent providing and/or coordinating discharge services: Time spent: Greater than 30 minutes Discharge Results Labs Diagrams: 03/07/25 04:20 03/07/25 04:20 Labs: Short CBC 03/07/25 Range/Units 04:20 WBC 4.8 (3.6-11.0) Thou/mm3 Hgb 13.4 (12.0-16.0) g/dL Hct 39.8 (36.0-46.0) % Plt Count 158 D (140-440) Thou/mm3 BMP 03/07/25 04:20 Sodium 142 Potassium 3.5 Chloride 105 Carbon Dioxide 24.6 BUN < 5 L Creatinine 0.8 Glucose 106 Calcium 9.2 Liver Function 03/07/25 Range/Units 04:20 Total Bilirubin 1.0 D (0.3-1.2) mg/dL AST 27 (0-34) U/L ALT 10 (10-49) U/L Alkaline Phosphatase 78 (46-116) U/L Albumin 4.3 (3.5-5.0) gm/dL Exam Vital Signs Temp Pulse Resp BP Pulse Ox O2 Del Method 97.2 F 84 14 103/69 98 Room Air 03/07/25 11:35 03/07/25 11:35 03/07/25 11:35 03/07/25 11:35 03/07/25 11:35 03/07/25 11:35 Narrative GENERAL APPEARANCE: NAD, resting comfortably HEENT: Periorbital bruising, and erythema with minimal pain to palpation to the patient's right periorbital region and nasal bone NECK: Supple, no JVD or bruits. CARDIOVASULAR: NSR, S1, S2 heard without S3-S4 or murmur no rubs or gallops. LUNGS/CHEST: CTA bilaterally, no wheezing, rhonchi or rales heard ABDOMEN: Soft, nontender, with normal bowel sounds. No pulsatile masses. No rebound, rigidity, or guarding. EXTREMITIES: Normal inspection and palpation. No edema, clubbing or cyanosis. NEURO: Alert, awake and oriented x3. Cranial nerves: II through XII grossly intact. Moves all 4 extremities, no focal deficit noted, no asterixis noted PSYCHIATRIC: Mood and affect normal Discharge Plan Plan Patient Disposition: HOME (Self Care) Care Plan Goals: ? Continue taking all other home medications as prescribed ? Follow-up with PCP within 1-2 weeks of discharge ? If you do not have a PCP, you can follow-up at the [facility] (you can call [phone] to make an appointment) ? Return to ED if symptoms worsen or recur Prescriptions/Referrals Prescriptions/Med Rec: No Action No Known Home Medications Referrals: No Primary/Family,Physician [Primary Care Provider] Patient/Caregiver Discharge Instructions Education Materials: Alcohol Withdrawal: What to Expect, Discharge Instructions for ... Print Language: Belarusian Stand Alone Forms: Josefina Award Info., Patient Portal Info Letter Discharge Order Discharge Orders: Discharge (Routine); Ordered 03/07/25 Ordered By: Hermelindo Willson Quality Discharge Quality Measures VTE prophylaxis
== END 2025-03-07 11:40 | disposition home or self-care (01) | DRG 774 ==
LOC: SERX 13:37 → SERHOLD 16:50 → S2NX 19:49
PROVIDERS: Nurse Practitioner Family; Admitting Provider Internal Medicine; Emergency Provider Emergency Medicine; Visit Provider Internal Medicine
DX: F10.139 Alcohol abuse with withdrawal, unspecified (principal); S02.2XXA Fracture of nasal bones, initial encounter for closed fracture; E87.4 Mixed disorder of acid-base balance; M26.642 Arthritis of left temporomandibular joint; R56.9 Unspecified convulsions; F14.129 Cocaine abuse with intoxication, unspecified; F15.129 Other stimulant abuse with intoxication, unspecified; E87.6 Hypokalemia; S00.83XA Contusion of other part of head, initial encounter; W19.XXXA Unspecified fall, initial encounter; S02.40FA Zygomatic fracture, left side, initial encounter for closed fracture; Z88.5 Allergy status to narcotic agent; M50.30 Other cervical disc degeneration, unspecified cervical region; E80.6 Other disorders of bilirubin metabolism
CPT/HCPCS: 36415; 36600; 70450; 70486; 71045; 72125; 80053; 80061; 80074; 80307; 80320; 81001; 82803; 83605; 83690; 83735; 83880; 84100; 84439; 84443; 84484; 85025; 85610; 85730; 93005; 95816; 96361; 96374; 96375; 97162; 99285; J1644; J1953; J2060; J2405; J2560; J2765; J3360; J7030; A9270; G0480